=== PATIENT | female | born 1965 | race Caucasian/White ===

== ENCOUNTER 2024-02-04 17:43 | Emergency (ER) | payer OTHER, SELFPAY ==
[2024-02-04 17:44] VITALS: PULSE 89; RESP 18; TEMP 36.9; O2SAT 100; BMI 33.0
--- NOTE | 2024-02-04 18:10 | RAD_ITS ---
INDICATION: pain EXAMINATION/TECHNIQUE: X-RAY - LEFT XR Knee Complete 4 Views or More 4 VIEWS COMPARISON: None FINDINGS: SOFT TISSUES: Suprapatellar joint effusion. No soft tissue swelling or gas. No radiopaque foreign body. BONES/JOINTS: No acute fracture. Normal alignment. Medial compartment and patellofemoral compartment joint space narrowing with tricompartment moderate osteophyte formation. Large 2.5 cm body inferior to the patella.. No sclerotic or destructive changes observed. RAD/Knee 4 or More Views IMPRESSION: Multicompartment osteoarthritis with joint effusion. Electronically Signed: Javi Sadler MD at 18:33 EDT ,
--- NOTE | 2024-02-04 18:16 | EDS_ITS ---
HPI History of Present Illness Chief Complaint: Lower Extremity Injury Informant: patient and family Narrative Narrative: Increasing left knee pain over the last 3 days. Was out picking mushrooms. Denies any falls or injuries. Was told she had [id number] arthritic changes in the knee 12 years ago when she had arthroscopic surgery by Dr. Cortez. She had cortisone injection x 2. She had leftover ibuprofen last dose 2 hours ago. Swelling to the knee. No fevers. Prior similar symptoms: Yes PFSH PFSH Medical History Knee pain Allergy/AdvReac Type Severity Reaction Status Date / Time No Known Allergies Allergy Verified 02/04/24 17:44 Social History Smoking Status: Smoker, status unknown ROS ROS ED Constitutional Constitutional ED: Denies chills, fever(s) or sweats Eyes Eyes: Denies change in vision ENT ENT ED: Denies dysphagia or sore throat Cardiovascular Cardiovascular: Denies chest pain, leg edema, palpitations or racing heartbeat Respiratory/Chest Respiratory/Chest: Denies cough, dyspnea or dyspnea on exertion Gastrointestinal Gastrointestinal: Denies abdominal pain, diarrhea, nausea or vomiting Genitourinary Genitourinary ED: Denies dysuria, hematuria or urinary frequency Musculoskeletal Musculoskeletal: Reports extremity pain and other Details: Left knee pain and swelling ; Denies back pain or neck pain Integumentary Denies rash or wounds Neurologic Neurologic: Denies headache(s), paresthesias or weakness EXAM Physical Exam Const Vital Signs: 02/04/24 17:44 02/04/24 19:18 Temperature 98.4 F 97.2 F L Temperature Source Temporal Pulse Rate 89 78 Respiratory Rate 18 16 Blood Pressure 137/74 H Blood Pressure Mean 95 Pulse Ox 100 99 Oxygen Delivery Method Room Air Positive well nourished and well developed General Appearance ED: well developed and NAD HEENT Reports moist mucous membranes normocephalic and atraumatic Eyes PERRL, EOMs intact bilaterally and conjunctivae normal General Eye ED: Yes normal appearance of both eyes Neck no lymphadenopathy and supple General: Negative for tenderness Chest Wall Chest: Negative for tenderness Resp normal respiratory effort and normal air movement Effort and Inspection: symmetric chest movement; Negative for respiratory distress Cardio regular rate, regular rhythm and no murmurs Peripheral Pulses: pulses 2+ throughout GI normal to inspection, nondistended, normoactive bowel sounds and non-tender Palpation: Negative for guarding or rebound tenderness present Back/Spine no CVA tenderness and no thoracic nor lumbar tenderness Extremity Extremity Narrative: Left lower extremity: Negative logroll. Suprapatellar swelling laterally knee extensor is intact. No redness or warmth. Negative Summer's. Positive patellar grind. No deformities. Neuro vas intact distally. General Extremety ED: Yes edema and tenderness General Extremity: edema Neuro oriented x3 and no sensory deficits noted Sensorium / Orientation: awake and alert Skin no rashes or lesions noted and no wounds MDM MDM MDM Narrative Medical decision making narrative: Interventions / MDM: Differential diagnosis: Diagnosis considered but do not suspect: No clinical septic joint. My EKG interpretation: N/A Imaging independently reviewed and interpreted by myself: Left knee x-ray 4 views: Multi osteoarthritic changes. Knee effusion. Also read by radiology. External documents reviewed: N/A Test considered but not ordered:N/A ED course: Patient declines any additional medication at this time. Exam concerns for patellofemoral chondritis with suprapatellar effusion. No clinical septic joint. X-ray ordered for further evaluation. X-ray degenerative changes noted however no [id number] as she reported. She was shown pictures through PACS on printout. She states she will continue her ibuprofen which she has at home. She has a knee sleeve and crutches. She is given follow-up with orthopedics for further treatment options as an outpatient. All questions were answered. Re-evaluation: stable Disposition discussed with patient/family/significant other: Patient and family Case discussed with consulting clinician: N/A This note was generated with [employer] dictation software. It may contain incorrect words, spelling, and punctuation that were not noted in checking the note before signing. Radiography Diagnostic Testing: Clinical Impression(s) from Imaging Studies Knee X-Ray 02/04/24 18:10 IMPRESSION: Multicompartment osteoarthritis with joint effusion. Electronically Signed: Javi Sadler MD at 18:33 EDT , Discharge Plan Triage Chief Complaint: Lower Extremity Injury ED Provider: Oscar Palencia Dx/Rx/DC Orders Clinical Impression: Effusion of left knee, Osteoarthritis of left knee Instructions: Osteoarthritis Knee, ED Knee Effusion Primary Care Provider: Cayden Yang Referrals: Everardo Arreola DO [Med Staff - Active Staff] - 3-5 Days Activity Restrictions/Additional Instructions: X-ray with osteoarthritic changes. Knee effusion noted. No clinical septic joint. Continue ibuprofen every 8 hours. Continue your knee sleeve and crutches as needed. Follow-up with Dr. Arreola for outpatient evaluation. Disposition Disposition: Home, Self Care Discharge Date/Time: 02/04/24 19:19
[2024-02-04 19:18] VITALS: BP 137/74; PULSE 78; RESP 16; TEMP 36.2; O2SAT 99
== END 2024-02-04 19:19 | disposition home or self-care (01) ==
PROVIDERS: Emergency Provider Emergency Medicine; PCP Family Medicine; Visit Provider Emergency Medicine
DX: M17.12 Unilateral primary osteoarthritis, left knee (principal); M25.462 Effusion, left knee
CPT/HCPCS: 73564; 99282

== ENCOUNTER 2024-02-06 17:21 | Emergency (ER) | payer OTHER, SELFPAY ==
[2024-02-06 17:22] VITALS: BP 128/58; PULSE 90; RESP 16; TEMP 36.5; O2SAT 99
--- NOTE | 2024-02-06 18:20 | RAD_ITS ---
INDICATION: edema EXAMINATION/TECHNIQUE: X-RAY - LEFT XR Knee Complete 4 Views or More COMPARISON: None. FINDINGS: No acute fracture or malalignment. Moderate, medial compartment predominant, tricompartmental joint space narrowing and osteophytosis. Large joint effusion. Diffuse soft tissue swelling of the knee. RAD/Knee 4 or More Views IMPRESSION: No acute fracture or malalignment. Large suprapatellar joint effusion. Moderate, medial compartment predominant, tricompartmental degenerative arthrosis of the knee. Electronically Signed: Todd Harris MD at 19:13 EDT ,
--- NOTE | 2024-02-06 19:03 | ED.VIS.LOWEX ---
HPI History of Present Illness Chief Complaint: Lower Extremity Injury Detail of Chief Complaint: Knee pain and swelling Occured/Mechanism Comment: Patient states she was walking in the [place] this past weekend. Pain started on Saturday. Became worse on Saturday. She is now unable to ambulate. Onset/Context/Timing Onset: Days Context: Sudden Onset Quality of Pain: Dull and Aching Location: Left knee Current Severity: Moderate Maximum Severity: Severe Worsened by: Weightbearing or movement Relieved by: Nothing Associated Symptoms Associated Symptoms: Positive for Loss of Funtion; Negative for Parasthesia or Weakness Narrative Narrative: Patient is a 59-year-old woman. She has history of arthritis left knee. He also has history of effusion of the left knee. She has no history of gout or pseudogout. She is not on a thiazide diuretic. She denies fever, chills night sweats. Patient's pain started on Saturday. Became unbearable and now unable to bear weight. She states she did not do anything out of the ordinary other than go out in the [place] to [place]. There is no history of fall. There is no history of direct or indirect trauma. She denies paresthesia, anesthesia or motor weakness. She states she did have a arthroscopy performed by orthopedic surgeon in [place] many years ago. She was told at that time that she has [id number]. Prior similar symptoms: Yes Recent Illness/Hospitalization: No PFSH [facility] Medical History (Updated 02/06/24 @ 19:[address] Keith Holder MD) Knee pain Home Medications hydrocodone-acetaminophen 5-325mg 5mg-325mg 1 tab PO Q6H PRN PRN Pain 3 days #10 TABLETS 02/06/24 [Rx Last Taken Unknown] Allergy/AdvReac Type Severity Reaction Status Date / Time No Known Allergies Allergy Verified 02/06/24 17:23 Social History Smoking Status: Smoker, status unknown ROS ROS ED Constitutional Constitutional ED: Denies chills, fever(s), subjective, sweats or weight loss Cardiovascular Cardiovascular: Denies chest pain or palpitations Respiratory/Chest Respiratory/Chest: Denies cough, dyspnea or dyspnea on exertion Musculoskeletal Musculoskeletal: Denies arthralgias or myalgias Integumentary Denies rash Neurologic Neurologic: Denies paresthesias or weakness Hematologic/Lymphatic Hematologic/Lymphatic: Denies easy bleeding or easy bruising EXAM Physical Exam Const Vital Signs: 02/06/24 17:22 Temperature 97.7 F L Temperature Source Temporal Pulse Rate 90 Respiratory Rate 16 Blood Pressure 128/58 H Blood Pressure Mean 81 Pulse Ox 99 Oxygen Delivery Method Room Air Positive well nourished and well developed Constitutional Narrative: Patient appears uncomfortable. General Appearance ED: well developed; Negative for NAD HEENT Reports moist mucous membranes normocephalic and atraumatic Eyes PERRL Eyes Narrative: Extract muscles intact. Neck full ROM and supple Resp normal respiratory effort Cardio regular rate and regular rhythm Extremity Negative for normal to inspection or full ROM Extremity Narrative: The left knee is swollen. The patellas not blottable. There is an effusion. There is joint line tenderness. There is no laxity varus valgus stress testing. She is able to extend to about 165 degrees. She is able to flex to approximately 100 degrees. Saundra's test was negative. Unable to perform modified Summer's test. There is no fullness or pulsatile mass in the popliteal fossa. DP and PT pulse are 2+. There is no erythema, warmth noted. General Extremety ED: Negative for cyanosis or edema General Extremity: Negative for cyanosis or edema Neuro oriented x3, CN's II-XII intact bilaterally, moves all extremities and no sensory deficits noted Sensorium / Orientation: alert Motor Exam: strength 5/5 throughout Psych mental status grossly normal Skin no wounds Lesions: no lesions Rashes: no rashes MDM MDM MDM Narrative Medical decision making narrative: Patient's left knee is swollen. Suspect this is due to osteoarthritis with no history of direct or indirect trauma. 4 view x-ray was obtained per nurse protocol. There is an effusion. There is significant osteoarthritic changes noted. There is no other mass or abnormality noted. Plan is opiate analgesia and crutches referral to Dr. Bloom. History & Record Review Additional record(s) reviewed:: Prior outpatient record Discharge Plan Triage Chief Complaint: Lower Extremity Injury ED Provider: Keith Holder Dx/Rx/DC Orders Clinical Impression: Effusion of left knee, Osteoarthritis of left knee, Unable to bear weight on left lower extremity, Hypertension Instructions: ED Osteoarthritis Prescriptions: New hydrocodone-acetaminophen [hydrocodone-acetaminophen] 5-325 mg tablet 1 tab PO Q6H PRN PRN (Reason: Pain) 3 Days Qty: 10 0RF Primary Care Provider: Cayden Yang Referrals: Cayden Yang MD [Primary Care Provider] - Duncan Bloom MD [Med Staff - Active Staff] - 3-5 Days Disposition Disposition: Home, Self Care
[2024-02-06] MEDS: HYDROcodone Bitartrate/Apap 5/325 Tablet PO (19:33)
== END 2024-02-06 19:39 | disposition home or self-care (01) ==
LOC: ED 19:30
PROVIDERS: Emergency Provider Emergency Medicine; PCP Family Medicine; Visit Provider Emergency Medicine
DX: M17.12 Unilateral primary osteoarthritis, left knee (principal); F17.200 Nicotine dependence, unspecified, uncomplicated; M25.462 Effusion, left knee; I10 Essential (primary) hypertension
CPT/HCPCS: 73564; 99283

== ENCOUNTER 2024-02-08 23:37 | Inpatient (IN) | payer OTHER, SELFPAY ==
[2024-02-08 23:40] VITALS: BP 122/53; PULSE 90; RESP 16; TEMP 36.8; O2SAT 97; BMI 33.9
[2024-02-08 23:42] VITALS: BP 122/53; PULSE 90; RESP 16; TEMP 36.8; O2SAT 97
--- NOTE | 2024-02-08 23:56 | EDS_ITS ---
HPI History of Present Illness Chief Complaint: Lower Extremity Injury Informant: patient and family Narrative Narrative: Patient has ED worsening left knee pain and swelling. Patient was seen 4 days of by myself pain and swelling after picking mushrooms. Workup had osteoarthritic changes were put on Motrin. Return to 2 days ago to the ED increasing pain and swelling. She is put on [place]'s given follow-up with orthopedics. Yesterday redness to the medial aspect of the knee pain with any movement of the knee. She has no fevers. No diabetes history. Hypertension on amlodipine. She had a left knee arthroscopy [address] Cortez. Prior similar symptoms: No PFSH PFSH Medical History (Updated 02/09/24 @ 04:[address] Oscar Palencia DO) Knee pain Home Medications hydrocodone-acetaminophen 5-325mg 5mg-325mg 1 tab PO Q6H PRN PRN Pain 3 days #10 TABLETS 02/06/24 [Rx Last Taken Unknown] amlodipine 5 mg tablet 5 mg PO QPM 02/08/24 [History Last Taken Unknown] cyanocobalamin (vitamin B-12) 1,000 mcg tablet 1,000 mcg PO DAILY 02/08/24 [History Last Taken Unknown] ibuprofen 800 mg tablet (IBU) 800 mg PO Q8H PRN pain 02/08/24 [History Last Taken Unknown] Allergy/AdvReac Type Severity Reaction Status Date / Time No Known Allergies Allergy Verified 02/08/24 23:38 Family History (Updated 02/09/24 @ 05:[address] Ayan Dior MD) Other Heart disease Surgical History (Updated 02/09/24 @ 05:[address] Ayan Dior MD) Status post arthroscopy of left knee Status post section Social History Smoking Status: Never smoker ROS ROS ED Constitutional Constitutional ED: Denies chills, fever(s) or sweats Eyes Eyes: Denies change in vision ENT ENT ED: Denies dysphagia or sore throat Cardiovascular Cardiovascular: Denies chest pain, leg edema, palpitations or racing heartbeat Respiratory/Chest Respiratory/Chest: Denies cough, dyspnea or dyspnea on exertion Gastrointestinal Gastrointestinal: Denies abdominal pain, diarrhea, nausea or vomiting Genitourinary Genitourinary ED: Denies dysuria, hematuria or urinary frequency Musculoskeletal Musculoskeletal: Reports extremity pain and other Details: Left knee pain and swelling with redness ; Denies back pain or neck pain Integumentary Denies rash or wounds Neurologic Neurologic: Denies headache(s), paresthesias or weakness EXAM Physical Exam Const Vital Signs: 02/08/24 23:40 02/08/24 23:42 02/09/24 00:42 Temperature 98.2 F 98.2 F 98.5 F Temperature Source Temporal Temporal Oral Pulse Rate 90 90 86 Respiratory Rate 16 16 18 Blood Pressure 122/53 H 122/53 H 110/52 L Blood Pressure Mean 76 76 71 Pulse Ox 97 97 92 Oxygen Delivery Method Room Air Oxygen Flow Rate (L/min) 02/09/24 01:00 02/09/24 03:00 02/09/24 05:00 Temperature Temperature Source Pulse Rate 96 87 93 Respiratory Rate 18 18 16 Blood Pressure 129/72 H 122/58 H 131/64 H Blood Pressure Mean 89 79 86 Pulse Ox 98 99 99 Oxygen Delivery Method Nasal Cannula Oxygen Flow Rate (L/min) 2 Positive well nourished and well developed General Appearance ED: well developed and NAD HEENT Reports moist mucous membranes normocephalic and atraumatic Eyes PERRL, EOMs intact bilaterally and conjunctivae normal General Eye ED: Yes normal appearance of both eyes Neck no lymphadenopathy and supple General: Negative for tenderness Chest Wall Chest: Negative for tenderness Resp normal respiratory effort and normal air movement Effort and Inspection: symmetric chest movement; Negative for respiratory distress Cardio regular rate, regular rhythm and no murmurs Peripheral Pulses: pulses 2+ throughout GI normal to inspection, nondistended, normoactive bowel sounds and non-tender Palpation: Negative for guarding or rebound tenderness present Back/Spine no CVA tenderness and no thoracic nor lumbar tenderness Extremity Extremity Narrative: Left lower extremity: Has more diffuse left knee swelling there is erythema the medial aspect of the knee there is pain with range of motion of the knee. General Extremety ED: Yes edema and tenderness General Extremity: edema Neuro oriented x3 and no sensory deficits noted Sensorium / Orientation: awake and alert Skin no rashes or lesions noted and no wounds MDM MDM MDM Narrative Medical decision making narrative: Interventions / MDM: Differential diagnosis: Septic left knee, left knee pain Diagnosis considered but do not suspect: N/A My EKG interpretation: Normal sinus rhythm no acute findings. Imaging independently reviewed and interpreted by myself: External documents reviewed: Recent ED visits and x-rays of the left knee. Test considered but not ordered:N/A ED course: Worsening swelling now erythema of the knee pain with range of motion. Concern for septic knee. Sepsis labs were ordered along with inflammatory markers. Preparation for knee aspiration. Procedure note: Written consent. Normal sterile, aseptic technique. Risk and benefit discussed. Time out 0100. Sterile gloves, skin prep with Betadine, 18- gauge needle approach laterally with knee in slight flexed position. Yellow drainage removed with a 10 cc syringe. A total of 80 cc were removed. Last syringe had brown cloudy fluid from a 20 cc syringe. Needle was removed, no active bleeding. Bandage was placed. Patient tolerated procedure well. 0330: White count 10.8. CRP 300. ESR 88. Require additional pain medicines with morphine and Dilaudid. Awaiting results of synovial fluid at this time. 0428: Patient's knee pain currently returning. Will redose with medications. Awaiting results of arthrocentesis. 0450: Results of cell count, white blood cell count 3,580,000. Discussed these results with electronics warfare technician, she states she had the count all the white cells which was majority on the slides. Culture is pending. Crystals are negative. I spoke with on-call orthopedist Dr. Massimo Coats, discussed patient's history and findings, IV antibiotics are ordered. She will be kept NPO. Requests admission to medicine with ID consult. I spoke with hospitalist Dr. Dior for admission. Re-evaluation: stable Disposition discussed with patient/family/significant other: Patient Case discussed with consulting clinician: Orthopedist, Dr. Massimo Coats, hospitalist This note was generated with [employer] dictation software. It may contain incorrect words, spelling, and punctuation that were not noted in checking the note before signing. Lab Data Attestation: I reviewed the patient's lab results. Labs: Laboratory Results - last 24 hr 02/08/24 02/09/24 00:01 01:06 WBC 10.8 RBC 4.51 Hgb 11.8 L Hct 36.1 L MCV 80.0 L MCH 26.2 L MCHC 32.7 RDW Std Deviation 43.1 RDW Coeff of Kj 14.6 Plt Count 318 MPV 10.8 Immature Gran % (Auto) 0.800 Neut % (Auto) 82.9 H Lymph % (Auto) 5.8 L [place] % (Auto) 9.9 Eos % (Auto) 0.3 Baso % (Auto) 0.3 Absolute Neuts (auto) 9.0 H Absolute Lymphs (auto) 0.63 L Nucleated RBC % 0 ESR 88 H Sodium 134 L Potassium 3.2 L Chloride 101 Carbon Dioxide 26.0 Anion Gap 7 BUN 16 Creatinine 0.64 Estim Creat Clear Calc 112.84 Est GFR (MDRD) Af Amer 124 Est GFR (MDRD) Non-Af 102 BUN/Creatinine Ratio 25.1 H Glucose 133 H Calcium 8.8 C-React Prot Ext Range 300.00 H Fluid Source OTHER Fluid Color YELLOW Fluid Appearance TURBID Fluid WBC 3580.000 Fluid RBC 3.300 Fluid Tot Cell Count 3593.000 H Fluid Crystals NO CRYSTALS SEEN Fluid Crystal Source SYNOVIAL Fl Pathologist Comment May follow Fluid Comment 2 Not Reportable Discharge Plan Dx/Rx/DC Orders Clinical Impression: Effusion of left knee, Knee pain, left, Septic arthritis of knee, left Disposition Disposition: Acute Care [facility] [place] Discharge Date/Time: 02/09/24 06:15
[2024-02-09] VITALS (19 sets, daily range): BP systolic 99–166; BP diastolic 47–96; PULSE 86–117; RESP 14–18; TEMP 35.7–37.7; O2SAT 92–99; BMI 32.4
[2024-02-09] MEDS: Ondansetron 4 MG/2 ML Vial IV ×2 (00:01→08:29)
[2024-02-09] MEDS: Morphine 4 MG/ML Syringe IV ×2 (00:01→02:00)
[2024-02-09 00:50] LABS: Erythrocyte Sedimentation Rate 88 mm/hr (0-30)
[2024-02-09 01:04] LABS: Absolute Lymphocyte Count 0.63 X10^3/uL (0.83-4.51); Basophil# 0.03 X10^3/uL; Basophil% 0.3 % (0-1); Eosinophil# 0.03 X10^3/uL; Eosinophils% 0.3 % (0-5); Hematocrit 36.1 % (37-47); Hemoglobin 11.8 g/dL (12.0-15.0); Lymphocyte # 0.63 X10^3/ul (0.83-4.51); Lymphocyte % 5.8 % (19-41); Mean Corp Hgb Conc 32.7 g/dL (32-36); Mean Corpuscular Hgb 26.2 pg (27.0-32.0); Mean Platelet Vol. 10.8 fl (6.2-12.0); Monocyte# 1.07 X10^3/uL; Monocyte% 9.9 % (0-10); NRBC Flagged by Analyzer 0 % (0-5); Neutrophil # 8.98 X10^3/uL (2.7-7.7); Neutrophil % 82.9 % (47-70); Platelet Count 318 K/mm3 (150-450); RBC Distribution Width CV 14.6 % (11.6-14.6); RBC Distribution Width SD 43.1 fl (35.1-43.9); Red Blood Count 4.51 M/mm3 (4.2-5.4); White Blood Count 10.8 K/mm3 (4.4-11.0)
[2024-02-09 01:26] LABS: Anion Gap 7 (5-15); BUN 16 mg/dL (7-18); BUN/Creat Ratio 25.1 RATIO (10-20); Calcium,Total 8.8 mg/dL (8.5-10.1); Chloride 101 mmol/L (98-107); Creatinine, Serum 0.64 mg/dL (0.55-1.02); EST Glomerular Filtration Rate 102 mL/min (>60); Est Glom Filt Rate - Afr Amer 124 mL/min (>60); Estimated Creatinine Clearance 112.84 ml/min; Glucose 133 mg/dL (74-106); Potassium 3.2 mmol/L (3.5-5.1); Sodium Level 134 mmol/L (136-145)
[2024-02-09] MEDS: HYDROmorphone 0.5 MG/0.5 ML SYRINGE IV ×3 (02:42→05:54)
[2024-02-09 03:52] LABS: CRYSTALS, BODY FLUID NO CRYSTALS SEEN; Source- Body Fluid SYNOVIAL
--- NOTE | 2024-02-09 05:15 | EKG12_ITS ---
Test Reason : DYSRHYTHMIA Blood Pressure : / mmHG Vent. Rate : 091 BPM Atrial Rate : 091 BPM P-R Int : 198 ms QRS Dur : 080 ms QT Int : 316 ms P-R-T Axes : 036 000 011 degrees QTc Int : 388 ms Normal sinus rhythm Normal ECG Confirmed by Andrea Acuna ([id number]), editor managing director PORFIRIO BEAN ([id number]) on 02/10/2024 9:57:21 AM Referred By: Confirmed By:Andrea Acuna
--- NOTE | 2024-02-09 05:24 | PCM.HP.STD ---
HPI - General General Date of Admission: 02/09/24 HPI Narrative SUZANNE CHRISTIE, is a 59 F who presents to the hospital with increasing left knee pain and medial redness that is expanding quickly. She has been having issues with her left knee for several years and she had an arthroscopy done 12 years ago. [place] when walking outside put strain on her knee. She did present to the ER 4 days ago with knee pain and then again 2 days after that with the same knee pain that was getting worse. On today's admission she was found to have a CRP of 300 and an ESR of 88. No fevers and no leukocytosis. Her daughter is a nurse and told her to put a marking around the initial redness on the medial aspect of her left knee and then to remark if it expands, she said that she had to remark after about an hour when it could spread down her knee by about an inch and a half. When she presented to the ER a fluid sample was taken by the ED physician and it was found to have 3.5 million white blood cells and no crystals. She was given a dose of Zosyn and vancomycin and the case was discussed with orthopedic surgery who requested medicine admission due to her hypertension that she takes Norvasc for. [facility], [facility] Medical History (Updated 02/09/24 @ 04:[address] Osacr Palencia DO) Knee pain Home Medications hydrocodone-acetaminophen 5-325mg 5mg-325mg 1 tab PO Q6H PRN PRN Pain 3 days #10 TABLETS 02/06/24 [Rx Last Taken Unknown] amlodipine 5 mg tablet 5 mg PO QPM 02/08/24 [History Last Taken Unknown] cyanocobalamin (vitamin B-12) 1,000 mcg tablet 1,000 mcg PO DAILY 02/08/24 [History Last Taken Unknown] ibuprofen 800 mg tablet (IBU) 800 mg PO Q8H PRN pain 02/08/24 [History Last Taken Unknown] Allergy/AdvReac Type Severity Reaction Status Date / Time No Known Allergies Allergy Verified 02/08/24 23:38 Family History (Updated 02/09/24 @ 05:[address] Ayan Dior MD) Other Heart disease Surgical History (Updated 02/09/24 @ 05:[address] Ayan Dior MD) Status post arthroscopy of left knee Status post section Social History Smoking Status: Never smoker ROS Constitutional Constitutional: Denies chills, fatigue, fever(s) or malaise Eyes Eyes: Denies blurry vision ENT HEENT: Denies headache(s) or nasal discharge Cardiovascular Cardiovascular: Denies chest pain, dyspnea on exertion or syncope Respiratory/Chest Respiratory/Chest: Denies cough, shortness of breath at rest or shortness of breath with exertion Gastrointestinal Gastrointestinal: Denies constipation, diarrhea, nausea or vomiting Genitourinary Genitourinary: Denies dysuria Musculoskeletal Musculoskeletal: Reports joint pain and joint swelling Neurologic Neurologic: Denies focal weakness, numbness or tremor(s) Psychiatric Psychiatric: Denies anxiety or depression Vital Signs Vital Signs Vital Signs: 02/08/24 23:40 02/08/24 23:42 02/09/24 00:42 Temperature 98.2 F 98.2 F 98.5 F Temperature Source Temporal Temporal Oral Pulse Rate 90 90 86 Respiratory Rate 16 16 18 Blood Pressure 122/53 H 122/53 H 110/52 L Blood Pressure Mean 76 76 71 Pulse Ox 97 97 92 Oxygen Delivery Method Room Air Oxygen Flow Rate (L/min) 02/09/24 01:00 02/09/24 03:00 02/09/24 05:00 Temperature Temperature Source Pulse Rate 96 87 93 Respiratory Rate 18 18 16 Blood Pressure 129/72 H 122/58 H 131/64 H Blood Pressure Mean 89 79 86 Pulse Ox 98 99 99 Oxygen Delivery Method Nasal Cannula Oxygen Flow Rate (L/min) 2 Weight Weight: 210 lb 1.608 oz Body Mass Index (BMI) 33.9 Physical Exam Narrative General: Alert, Oriented x3, Cooperative, No apparent distress HEENT: Atraumatic, PERRLA, EOMI, Normocephalic Oral: Moist Mucosa Neck: Supple, No JVD Lungs: Diminished, Normal air movement, No rhonchi, No wheeze, No rales Cardiovascular: Regular rate, Regular Rhythm, Normal S1, Normal S2, No murmurs Abdomen: Soft, Non Tender, Non-Distended, No Hepato-splenomegaly Extremities: No edema, Capillary Refill Less than 3 Seconds Skin: Medial redness of the left knee extending down into the calf Musculoskeletal: Tenderness to the left knee with swelling around the left knee Neurological: No focal neurological deficits, Motor Exam 5/5 strength throughout, Sensory exam intact to light touch and pain Psych/Mental Status: Normal Affect, Appropriate Results Lab / Micro Data 02/09/24 05:30 02/09/24 05:30 Labs: Laboratory Results - last 24 hr 02/08/24 00:01: WBC 10.8, RBC 4.51, Hgb 11.8 L, Hct 36.1 L, MCV 80.0 L, MCH 26.2 L, MCHC 32.7, RDW Std Deviation 43.1, RDW Coeff of Kj 14.6, Plt Count 318, MPV 10.8, Immature Gran % (Auto) 0.800, Neut % (Auto) 82.9 H, Lymph % (Auto) 5.8 L, [place] % (Auto) 9.9, Eos % (Auto) 0.3, Baso % (Auto) 0.3, Absolute Neuts (auto) 9.0 H, Absolute Lymphs (auto) 0.63 L, Nucleated RBC % 0, ESR 88 H, Sodium 134 L, Potassium 3.2 L, Chloride 101, Carbon Dioxide 26.0, Anion Gap 7, BUN 16, Creatinine 0.64, Estim Creat Clear Calc 112.84, Est GFR (MDRD) Af Amer 124, Est GFR (MDRD) Non-Af 102, BUN/Creatinine Ratio 25.1 H, Glucose 133 H, Calcium 8.8, C-React Prot Ext Range 300.00 H 02/09/24 01:06: Fluid Source OTHER, Fluid Color YELLOW, Fluid Appearance TURBID, Fluid WBC 3580.000, Fluid RBC 3.300, Fluid Tot Cell Count 3593.000 H, Fluid Crystals NO CRYSTALS SEEN, Fluid Crystal Source SYNOVIAL, Fl Pathologist Comment May follow, Fluid Comment 2 Not Reportable Assessment & Plan Assessment/Plan (1) Septic arthritis of knee, left: PLAN: Plan 1. Septic left knee joint ? Knee fluid with 3.5 million white blood cell count ? Continue with Vanco and Zosyn ? Will consult orthopedic surgery, given that her only medical problem is hypertension she is low risk ? Will consult infectious disease at the request of orthopedic surgery for evaluation of antibiotics ? N.p.o. ? Pain management 2. Essential hypertension ? She takes Norvasc at night ? Can continue ? Will monitor and adjust as necessary DVT: SCDs 75 minutes was spent on direct patient care, including documentation as well as chart review and collaboration with colleagues Charges/Coding Visit Charges Inpatient E&M: 12620 Init Hosp L3
--- NOTE | 2024-02-09 05:28 | RAD_ITS ---
INDICATION: preop EXAMINATION/TECHNIQUE: X-RAY - XR Chest 1 View COMPARISON: None. FINDINGS: LINES/DEVICES: None. LUNGS: No pulmonary edema or focal airspace consolidation. No sizable pleural effusion. No pneumothorax detected. MEDIASTINUM AND CARDIOVASCULAR STRUCTURES: Heart size within normal limits. Mediastinal contours unremarkable. BONES AND SOFT TISSUES: No acute findings. RAD/Chest 1 View IMPRESSION: No radiographic evidence of acute cardiopulmonary disease. Electronically Signed: Fredo Johnson MD at 6:30 EDT ,
[2024-02-09] MEDS: Piperacil/Tazobactam 4.5 GM in 0.9% Normal Saline (100mL MB+) 100 ML IV (05:37)
[2024-02-09] MEDS: 0.9% Normal Saline (1000mL) 1,000 ML 100 ML IV (05:40)
[2024-02-09 05:47] LABS: Absolute Lymphocyte Count 0.75 X10^3/uL (0.83-4.51); Absolute Neutrophil Count 9.2 X10^3/uL (2.0-7.7); Basophil# 0.03 X10^3/uL; Basophil% 0.3 % (0-1); Eosinophil# 0.03 X10^3/uL; Eosinophils% 0.3 % (0-5); Hematocrit 35.7 % (37-47); Hemoglobin 11.5 g/dL (12.0-15.0); Lymphocyte # 0.75 X10^3/ul (0.83-4.51); Lymphocyte % 6.8 % (19-41); Mean Corp Hgb Conc 32.2 g/dL (32-36); Mean Corpuscular Hgb 25.9 pg (27.0-32.0); Mean Corpuscular Volume 80.4 fL (81-99); Mean Platelet Vol. 10.1 fl (6.2-12.0); Monocyte# 0.98 X10^3/uL; Monocyte% 8.9 % (0-10); NRBC Flagged by Analyzer 0 % (0-5); Neutrophil # 9.22 X10^3/uL (2.7-7.7); Neutrophil % 83.2 % (47-70); Platelet Count 304 K/mm3 (150-450); RBC Distribution Width CV 14.6 % (11.6-14.6); Red Blood Count 4.44 M/mm3 (4.2-5.4); White Blood Count 11.1 K/mm3 (4.4-11.0)
[2024-02-09 06:02] LABS: Anion Gap 7 (5-15); BUN 16 mg/dL (7-18); BUN/Creat Ratio 26.6 RATIO (10-20); Calcium,Total 8.8 mg/dL (8.5-10.1); Chloride 101 mmol/L (98-107); EST Glomerular Filtration Rate 109 mL/min (>60); Est Glom Filt Rate - Afr Amer 132 mL/min (>60); Estimated Creatinine Clearance 120.36 ml/min; Glucose 122 mg/dL (74-106); Potassium 3.2 mmol/L (3.5-5.1); Sodium Level 136 mmol/L (136-145)
[2024-02-09] MEDS: Vancomycin HCl 2,000 MG in 0.9% Normal Saline (500mL Bag) 500 ML 250 MG IV (06:12)
--- NOTE | 2024-02-09 06:59 | PCM.RX.CS ---
Consult Antibiotic Management Pharmacy has been consulted to manage selected antibiotic: Vancomycin Type of Intervention Type of Consult: Follow-up Labs Labs: Sodium 136 mmol/L (136-145) 02/09/24 05:30 Potassium 3.2 mmol/L (3.5-5.1) L 02/09/24 05:30 Chloride 101 mmol/L (98-107) 02/09/24 05:30 Carbon Dioxide 28.0 mmol/L (21.0-32.0) 02/09/24 05:30 Anion Gap 7 (5-15) 02/09/24 05:30 BUN 16 mg/dL (7-18) 02/09/24 05:30 Creatinine 0.60 mg/dL (0.55-1.02) 02/09/24 05:30 Est GFR (MDRD) Af Amer 132 mL/min (>60) 02/09/24 05:30 Est GFR (MDRD) Non-Af 109 mL/min (>60) 02/09/24 05:30 BUN/Creatinine Ratio 26.6 RATIO (10-20) H 02/09/24 05:30 Glucose 122 mg/dL (74-106) H 02/09/24 05:30 Dosing Weight Weight used for dosin.9 kg Estimated Creatinine Clearance Estimated Creatinine Clearance: 120 Goal Trough Goal Trough: 15-20 mcg/mL Pharmacy Plan for Drug Dosing Pharmacy Plan for Drug Dosing: Pharmacy Service will continue to monitor and adjust dosing as required. Date/Time Labs Ordered Labs to be done on [date and time ordered]: 02/09 @ 0600
--- NOTE | 2024-02-09 07:01 | PCM.RX.CS ---
Consult Antibiotic Management Pharmacy has been consulted to manage selected antibiotic: Vancomycin Type of Intervention Type of Consult: New start Labs Labs: Sodium 136 mmol/L (136-145) 02/09/24 05:30 Potassium 3.2 mmol/L (3.5-5.1) L 02/09/24 05:30 Chloride 101 mmol/L (98-107) 02/09/24 05:30 Carbon Dioxide 28.0 mmol/L (21.0-32.0) 02/09/24 05:30 Anion Gap 7 (5-15) 02/09/24 05:30 BUN 16 mg/dL (7-18) 02/09/24 05:30 Creatinine 0.60 mg/dL (0.55-1.02) 02/09/24 05:30 Est GFR (MDRD) Af Amer 132 mL/min (>60) 02/09/24 05:30 Est GFR (MDRD) Non-Af 109 mL/min (>60) 02/09/24 05:30 BUN/Creatinine Ratio 26.6 RATIO (10-20) H 02/09/24 05:30 Glucose 122 mg/dL (74-106) H 02/09/24 05:30 Dosing Weight Weight used for dosin.9 kg Estimated Creatinine Clearance Estimated Creatinine Clearance: 120 Goal Trough Goal Trough: 15-20 mcg/mL Pharmacy Plan for Drug Dosing Pharmacy Plan for Drug Dosing: Pharmacy Service will continue to monitor and adjust dosing as required. Follow-Up Labs Follow-Up Labs: Trough: Vancomycin Date/Time Labs Ordered Labs to be done on [date and time ordered]: 02/09 @ 0600
[2024-02-09] MEDS: 0.9% Saline Lock 10 ML Syringe IV ×3 (07:03→22:38)
[2024-02-09] MEDS: HYDROmorphone 1 MG/ML Syringe IV ×5 (07:03→17:16)
--- NOTE | 2024-02-09 07:07 | PCM.PN.HOSP ---
Reason for Visit Reason for Visit: Diagnoses Pyogenic arthritis, unspecified (02/09/24) Subjective Subjective Patient with ongoing significant pain to the left knee since admission, worse with any movement attempts. She notes she has had minimal sleep because of this. She rates her pain currently 8 out of 10 in severity but notes with any movement the pain is much more sharp especially also with palpation of the region. She again confirms no recent injury or trauma. She initially had been seen in the ED twice for significant pain felt arthritic at that time and then eventually developed redness around the left knee prompting return and eventual diagnosis of septic joint. Discussed plan of care which included continued IV antibiotic therapy in OR this a.m. with orthopedic surgery. Noted intention to have infectious disease also follow-up. Patient denies fevers, chills, nausea, emesis, abdominal pain, chest pain or dyspnea. Objective Data Objective Data Vital Signs: Vital Signs Temp Pulse Resp BP Pulse Ox O2 Del Method O2 Flow Rate 98.4 F 93 18 131/62 H 93 Room Air 2 02/09/24 06:54 02/09/24 06:54 02/09/24 06:54 02/09/24 06:54 02/09/24 06:54 02/09/24 06:54 02/09/24 05:00 Oxygen Flow Rate (L/min) 2 Oxygen Delivery Method Room Air Weight: 207 lb 0.225 oz Body Mass Index (BMI) 32.4 Intake & Output: Intake and Output for Last 24 Hours 02/07/24 02/08/24 02/09/24 23:59 23:59 23:59 Intake Total 100 / 100 Balance 100 / 100 Lab / Micro Data 02/09/24 05:30 02/09/24 05:30 Labs: Laboratory Results - last 24 hr 02/08/24 00:01: WBC 10.8, RBC 4.51, Hgb 11.8 L, Hct 36.1 L, MCV 80.0 L, MCH 26.2 L, MCHC 32.7, RDW Std Deviation 43.1, RDW Coeff of Kj 14.6, Plt Count 318, MPV 10.8, Immature Gran % (Auto) 0.800, Neut % (Auto) 82.9 H, Lymph % (Auto) 5.8 L, [place] % (Auto) 9.9, Eos % (Auto) 0.3, Baso % (Auto) 0.3, Absolute Neuts (auto) 9.0 H, Absolute Lymphs (auto) 0.63 L, Nucleated RBC % 0, ESR 88 H, Sodium 134 L, Potassium 3.2 L, Chloride 101, Carbon Dioxide 26.0, Anion Gap 7, BUN 16, Creatinine 0.64, Estim Creat Clear Calc 112.84, Est GFR (MDRD) Af Amer 124, Est GFR (MDRD) Non-Af 102, BUN/Creatinine Ratio 25.1 H, Glucose 133 H, Calcium 8.8, C-React Prot Ext Range 300.00 H 02/09/24 01:06: Fluid Source OTHER, Fluid Color YELLOW, Fluid Appearance TURBID, Fluid WBC 3580.000, Fluid RBC 3.300, Fluid Tot Cell Count 3593.000 H, Fluid Crystals NO CRYSTALS SEEN, Fluid Crystal Source SYNOVIAL, Fl Pathologist Comment May follow, Fluid Comment 2 Not Reportable 02/09/24 05:30: WBC 11.1 H, RBC 4.44, Hgb 11.5 L, Hct 35.7 L, MCV 80.4 L, MCH 25.9 L, MCHC 32.2, RDW Std Deviation 43.0, RDW Coeff of Kj 14.6, Plt Count 304, MPV 10.1, Immature Gran % (Auto) 0.500, Neut % (Auto) 83.2 H, Lymph % (Auto) 6.8 L, [place] % (Auto) 8.9, Eos % (Auto) 0.3, Baso % (Auto) 0.3, Absolute Neuts (auto) 9.2 H, Absolute Lymphs (auto) 0.75 L, Nucleated RBC % 0, Sodium 136, Potassium 3.2 L, Chloride 101, Carbon Dioxide 28.0, Anion Gap 7, BUN 16, Creatinine 0.60, Estim Creat Clear Calc 120.36, Est GFR (MDRD) Af Amer 132, Est GFR (MDRD) Non-Af 109, BUN/Creatinine Ratio 26.6 H, Glucose 122 H, Calcium 8.8 Radiography Diagnostic Testing: Radiology Impression Chest X-Ray 02/09/24 05:28 IMPRESSION: No radiographic evidence of acute cardiopulmonary disease. Electronically Signed: Fredo Johnson MD at 6:30 EDT , Physical Exam Narrative Physical Examination: General: Awake, alert, oriented x 3 and cooperative, laying in the MS bed, fatigued, uncomfortable appearing especially when she moves. Skin: Normal color, normal turgor, no icterus, no cyanosis except for still a small region around the left medial knee of erythema but it seems to have abated, warmth to the knee notable even to the lower extremity distal to the knee noted warmth. HEENT: AT/NC, EOMI, PERRLA, mildly dry MM. Lungs: CTA bilaterally, moderate effort, mild decrease BL bases, no rales, ronchi or wheezing. Heart: Regular rate and rhythm; no gallop, rub audible. Abdomen: Soft, obese, NTTP, ND, mildly hyperactive Extremities: No cyanosis, no clubbing, see skin, notable left knee swelling, effusion. Neurological: Patient awake, alert, oriented as noted, cognitive function intact; pupils equally reactive to light and accommodation, cranial nerves grossly normal, moving all 4 extremities except extremely limited movement left knee given acute presentation as noted, strength accordingly severely globally decreased. Psychiatric: Affect appears fatigued, uncomfortable,, no acute evidence of depressive or anxiety feelings. Assessment & Plan Assessment/Plan (1) Septic arthritis of knee, left: PLAN: Plan The patient is a 59 y/o F w/ PMHs: Obesity, HTN who presents to the [facility] on 02/09/24 secondary to ongoing severe L knee pain, recently seen in the ED twice with concern for OA pain with planned orthopedic surgery evaluation outpatient; however, worsened and knee started to swell with redness prompting ED return. #1. Acute left knee septic joint with significant effusion: Significant fluid aspiration with evidence of infection, admitted to medical surgical floor, maintained on IV vancomycin and IV Zosyn, orthopedic surgery consulted and plan for OR 02/09/2020 4 AM, will continue pain regimen with adjustments with both IV and oral with breakthrough regimen as needed given significant pain at this time, will need PT and OT assessments following. #2. Microcytic anemia, appears likely new but no comparison labs noted: Admission hemoglobin 11.8, MCV 80, repeat 02/09/2024 hemoglobin 11.5, MCV 80.4, will continue to monitor and trend CBC. Iron panel, ferritin requested. #3. Hypokalemia: Admission K+ 3.2, magnesium level requested and noted to be 2.2, supplementation given, repeat level in AM. #4. Hypertension: Continue home regimen including amlodipine, PRN hydralazine. #5. Obesity: Weight loss and lifestyle changes encouraged. #6. DVT prophylaxis: SCDs given planned OR. Charges/Coding Procedures Hospitalists Procedures: Other Procedure - See Report ([id number]: No billing code as patient admitted same day, unable to bill.)
[2024-02-09 08:08] LABS: AUTO B FLUID DILUENT BKGD CT WBC <0.1 RBC <0.01 (W<.1,R<.01); Color / Synovial Fluid Yellow (Pale Yellow)
[2024-02-09 08:09] LABS: Appearance /Synovial Fluid Cloudy (CLEAR)
[2024-02-09 08:27] LABS: Synovial Fld Mononuclear WBC % 10.9 %; Synovial Fld Polynuclear WBC % 89.1 %
[2024-02-09 08:29] LABS: Lymph 6 %; Monocyte /Synovial Fluid 4 %; Neutrophil 90 % (0-25)
[2024-02-09 08:34] LABS: Magnesium 2.2 mg/dL (1.6-2.6)
[2024-02-09 08:56] LABS: Pathologist Review Will follow; RBC /Synovial Fluid 23 /mm3 (0)
--- NOTE | 2024-02-09 09:29 | CON.PCM.OR_ITS ---
HPI Consult Data Date of Consult: 02/09/24 HPI Narrative HPI Narrative: SUZANNE CHRISTIE, is a 59 F who presents with severe left knee pain. Patient states she was mushroom hunting 8 days ago on Saturday. She does not remember any specific injury to the knee. She does have a history of knee problems. She had left knee arthroscopy [address] Cortez in [place]. She has had posttraumatic arthritis. On Saturday she developed left knee pain and swelling. She went to the emergency room. On Saturday she returned to the emergency room with left knee pain. She was again discharged. She was taken back to the emergency room Saturday evening February 08, 2024 for knee pain. Knee was aspirated. I was notified of the patient at approximately 4 AM on 02/09/2024. I was told she had elevated sed rate, CRP, white cell count and her synovial fluid. Admission was recommended for IV antibiotics and arthroscopic irrigation and debridement for a probable septic knee. Patient states her knee pain was 10 out of 10 coming to the emergency room. Pain has at best has been 4 out of 10 after aspiration, IV antibiotics, Dilaudid. She denies any signs of infection such as dental infection, UTI or any skin sores. Denies history of DVT or PE. [facility] Medical History (Updated 02/09/24 @ 04:[address] Oscar Palencia DO) Knee pain Home Medications hydrocodone-acetaminophen 5-325mg 5mg-325mg 1 tab PO Q6H PRN PRN Pain 3 days #10 TABLETS 02/06/24 [Rx Last Taken Unknown] amlodipine 5 mg tablet 5 mg PO QPM 02/08/24 [History Last Taken Unknown] cyanocobalamin (vitamin B-12) 1,000 mcg tablet 1,000 mcg PO DAILY 02/08/24 [History Last Taken Unknown] ibuprofen 800 mg tablet (IBU) 800 mg PO Q8H PRN pain 02/08/24 [History Last Taken Unknown] Allergy/AdvReac Type Severity Reaction Status Date / Time No Known Allergies Allergy Verified 02/08/24 23:38 Family History (Updated 02/09/24 @ 05:[address] Ayan Dior MD) Other Heart disease Surgical History (Updated 02/09/24 @ 05:[address] Ayan Dior MD) Status post arthroscopy of left knee Status post section Social History Smoking Status: Never smoker ROS ROS Narrative Patient denies any recent changes with eyes ears nose or throat heart or lungs bowel or bladder function. She does have severe left knee pain from her infection Vital Signs Vital Signs Vital Signs: 02/08/24 23:40 02/08/24 23:42 02/09/24 00:42 Temperature 98.2 F 98.2 F 98.5 F Temperature Source Temporal Temporal Oral Pulse Rate 90 90 86 Respiratory Rate 16 16 18 Blood Pressure 122/53 H 122/53 H 110/52 L Blood Pressure Mean 76 76 71 Blood Pressure Source Blood Pressure Position Blood Pressure Location Pulse Ox 97 97 92 Oxygen Delivery Method Room Air Oxygen Flow Rate (L/min) 02/09/24 01:00 02/09/24 03:00 02/09/24 05:00 Temperature Temperature Source Pulse Rate 96 87 93 Respiratory Rate 18 18 16 Blood Pressure 129/72 H 122/58 H 131/64 H Blood Pressure Mean 89 79 86 Blood Pressure Source Blood Pressure Position Blood Pressure Location Pulse Ox 98 99 99 Oxygen Delivery Method Nasal Cannula Oxygen Flow Rate (L/min) 2 02/09/24 05:58 02/09/24 06:54 Temperature 98.9 F 98.4 F Temperature Source Temporal Pulse Rate 90 93 Respiratory Rate 16 18 Blood Pressure 125/51 H 131/62 H Blood Pressure Mean 75 85 Blood Pressure Source Monitor Blood Pressure Position Semi-Fowlers Blood Pressure Location Right Arm Pulse Ox 97 93 Oxygen Delivery Method Room Air Oxygen Flow Rate (L/min) Weight Weight: 93.9 kg Body Mass Index (BMI) 32.4 Physical Exam Narrative Patient is lying in bed. Family present. She has large left knee effusion. She has warmth and redness about the left knee. She is holding the knee flexed about 30 degrees. She has pain with moving it. No calf pain or swelling. Negative Homans' sign. No hip pain with motion. Negative straight leg raise. Legs are neurovascular intact. Skin is intact at the left knee. X-rays of the left knee showed severe arthritis with sclerosis, osteophyte formation, patellofemoral arthritis. Bone spurring medially and laterally. There appears to be a rounded calcific loose body at the anterior knee. Reports reviewed Lab / Micro Data 02/09/24 05:30 02/09/24 05:30 Labs: Laboratory Results - last 24 hr 02/08/24 00:01: WBC 10.8, RBC 4.51, Hgb 11.8 L, Hct 36.1 L, MCV 80.0 L, MCH 26.2 L, MCHC 32.7, RDW Std Deviation 43.1, RDW Coeff of Kj 14.6, Plt Count 318, MPV 10.8, Immature Gran % (Auto) 0.800, Neut % (Auto) 82.9 H, Lymph % (Auto) 5.8 L, [place] % (Auto) 9.9, Eos % (Auto) 0.3, Baso % (Auto) 0.3, Absolute Neuts (auto) 9.0 H, Absolute Lymphs (auto) 0.63 L, Nucleated RBC % 0, ESR 88 H, Sodium 134 L, Potassium 3.2 L, Chloride 101, Carbon Dioxide 26.0, Anion Gap 7, BUN 16, Creatinine 0.64, Estim Creat Clear Calc 112.84, Est GFR (MDRD) Af Amer 124, Est GFR (MDRD) Non-Af 102, BUN/Creatinine Ratio 25.1 H, Glucose 133 H, Calcium 8.8, C-React Prot Ext Range 300.00 H 02/09/24 01:06: Fluid Source Cancelled, Fluid Color Cancelled, Fluid Appearance Cancelled, Fluid WBC Cancelled, Fluid RBC Cancelled, Fluid Tot Cell Count Cancelled, Fld Polynuclear WBCs # Cancelled, Fld Polynuclear WBCs % Cancelled, Fluid Mononuclear WBCs Cancelled, Fld Mononuclear WBCs % Cancelled, Fluid Neutrophils Cancelled, Fluid Lymphocytes Cancelled, Fluid Monocytes Cancelled, Fluid Plasma Cells Cancelled, Fluid Macrophages Cancelled, Fld Mesothelial Cells Cancelled, Fluid Other Cells Cancelled, Fluid Crystals NO CRYSTALS SEEN, Fluid Crystal Source SYNOVIAL, Fl Crystal Path Review Will follow, Fl Pathologist Comment Cancelled, Fluid Comment 2 Cancelled, Synovial Source RIGHT KNEE, Synovial Color Yellow, Synovial Appearance Cloudy, Synovial WBC 32.6000 H, Synovial RBC 23 H, Synovial Tot Cell Ct 33.0200 H, Synov Polynuclear WBCs 29.040, Synov Mononuclear WBCs 3.560, Synovial Neutrophils 90 H, Synovial Lymphocytes 6, Synovial Monocytes 4, Synovial Polynuclear % 89.1, Synovial Mononuclear % 10.9, Synovial Path Comment May follow 02/09/24 05:30: WBC 11.1 H, RBC 4.44, Hgb 11.5 L, Hct 35.7 L, MCV 80.4 L, MCH 25.9 L, MCHC 32.2, RDW Std Deviation 43.0, RDW Coeff of Kj 14.6, Plt Count 304, MPV 10.1, Immature Gran % (Auto) 0.500, Neut % (Auto) 83.2 H, Lymph % (Auto) 6.8 L, [place] % (Auto) 8.9, Eos % (Auto) 0.3, Baso % (Auto) 0.3, Absolute Neuts (auto) 9.2 H, Absolute Lymphs (auto) 0.75 L, Nucleated RBC % 0, Sodium 136, Potassium 3.2 L, Chloride 101, Carbon Dioxide 28.0, Anion Gap 7, BUN 16, Creatinine 0.60, Estim Creat Clear Calc 120.36, Est GFR (MDRD) Af Amer 132, Est GFR (MDRD) Non-Af 109, BUN/Creatinine Ratio 26.6 H, Glucose 122 H, Calcium 8.8, Magnesium 2.2 Micro: Microbiology 02/09/24 01:06 Fluid - Synovial (joint) Gram Stain - Final Imaging Radiology Impression Chest X-Ray 02/09/24 05:28 IMPRESSION: No radiographic evidence of acute cardiopulmonary disease. Electronically Signed: Fredo Johnson MD at 6:30 EDT , Assessment & Plan Assessment/Plan (1) Effusion of left knee: PLAN: Her diagnosis and treatment options regarding her left knee effusion, previous knee surgery, posttraumatic arthritis, probable septic knee discussed with her and her family at length. I explained based on her current numbers she has a synovial white cell count of about 32,000, reported PMN percentage at 95%, elevated ESR, elevated CRP. Seemingly normal temperature and WBC. Gram stain reported as multiple white blood cells as well as rare gram-positive cocci. Based on patient's clinical exam history and physical and available laboratory work I would recommend arthroscopic irrigation debridement of the knee. They understand and agree. They understand infection can be limb or life- threatening. No guarantees stated or implied. Possible need for repeat surgeries explained. Possibility of placing a drain discussed briefly. Risk of surgery including but not limited to from operative or postoperative complications. Risk of anesthetic complications such as heart attacks, strokes, seizures, or . Risk of infections. Risk of damage to nerves arteries tendons. Risk of inadvertent fractures or dislocations. Risk of bone or wound healing complications. Possibility of nonunion malunion pain stiffness weakness. Possible need for further surgery such as hardware removal. Risk of DVT PE and other potential complications could lead to or disability explained. No guarantees were stated or implied. All of their questions were answered. Appropriate informed consent was obtained and signed for surgical intervention. She will continue on the medical service. Infectious disease service has been consulted. Continue on appropriate IV antibiotics. Plan to use aspirin 81 mg twice a day postoperatively for DVT prevention. JACEY mena and SARINAs.
[2024-02-09] MEDS: Epinephrine (1 mg/ml) 1 MG/ML VIAL ×2 (10:20→10:26)
[2024-02-09] MEDS: morphine PF (epidural) 5 MG/10 ML Vial (10:29)
[2024-02-09] MEDS: Lidocaine 1% /Epi 1:100 (20ml) 20 ML Vial (10:30)
[2024-02-09 10:38] LABS: Ferritin 504 ng/mL (8-252); Iron 16 ug/dL (50-170); Iron Binding Capacity,Total 137 ug/dL (250-450); PERCENT IRON SATURATION 11.7 % (15.0-55.0)
--- NOTE | 2024-02-09 10:55 | PCM.OP.BLANK ---
Problems Associated Problem List Diagnoses (1) Effusion of left knee: Operative Report Date of Procedure: 02/09/24 Preoperative diagnosis: Left knee pain, effusion, probable septic knee, posttraumatic arthritis Postoperative diagnosis : Same plus medial and lateral meniscus tears Procedure: Diagnostic video arthroscopy, arthroscopic irrigation debridement, arthroscopic partial medial and lateral meniscectomy, diffuse chondroplasty Surgeon: Dr. Massimo Coats Anesthesia: General, Dr. العلي Special medications: IV vancomycin, piperacillin Please refer to ER records in regards to fluids given. EBL less than 20 Complications none Indications for surgery: Patient is a 59-year-old female with a long-standing history of left knee pain. She developed knee pain and swelling after recent mushroom hunting. She has been into the ER 3 times in the past week. Diagnosed finally with a possible knee infection. Patient failed adequate nonoperative treatment for the knee pain. Laboratory findings discussed with patient and her family. Due to persistent symptoms they wish to proceed with knee arthroscopy. Findings: Intraoperative findings were consistent with her preoperative history, physical, radiographic exam. She did have significant thick fluid consistent with infection throughout the knee joint. Some hypertrophic synovium. She had significant degenerative changes throughout the patellofemoral joint medial and lateral knee joint. She had degenerative meniscus tearing medially and laterally. She had signs of previous partial meniscectomy especially medially. No loose bodies identified. Pictures taken throughout. 9 L of fluid irrigated through the knee. Last liter of fluid did have 2 g of Ancef added Details of procedure: Patient was taken to the OR transfer to the OR table. Nonoperative limb was appropriately padded, JACEY hose and SCD applied. Patient was placed under the anesthetic agent. Operative knee was examined. No signs of infection. Operative upper thigh was well-padded and ultimately placed in a well-padded thigh galindo. Operative lower extremity was prepped and draped in usual orthopedic sterile fashion for the procedure. Local anesthetic agent was sterilely injected into the proposed arthroscopic portals. Lateral portal was established with a knife. Took us through skin only. Dull trocar took us into the joint. The scope was placed through the lateral portal. Medial portal and ultimately established using a spinal needle followed by a knife through skin, followed by a dull trocar into the joint. Probe was placed to the medial portal. She had diffuse synovitis throughout the knee. She had thickened yellowish fluid throughout the knee joint. This was debrided with a 4.0 shaver. We began in the suprapatellar pouch as well as the patellofemoral joint followed by the medial gutter followed by the medial compartment. Signs of previous meniscectomy noted. Partial tearing of the remaining meniscus was identified and lightly shaved. Synovial tissue from the anterior aspect of the knee carefully resected with a shaver going from medial to the intercondylar notch. ACL identified to be intact. We then went to the lateral compartment visualized and probed the lateral compartment as well as used the shaver their findings similar chondral changes as well as fraying of the lateral meniscus that was gently shaved as well. At this point the shaver and the arthroscope was switched in portals. We now debrided the lateral gutter as well as more lateral aspect of the patellofemoral joint. We again debrided anteriorly and anterior medial. We attempted to get the scope into the posterior medial and posterior lateral compartments. Based on her bony anatomy we could not get posterior medial. Going posterior lateral no loose bodies noted. No signs of further thickened fluid noted. Ultimately we reentered all the compartments anteriorly patellofemoral joint medial gutter lateral gutter medial lateral compartments and again provide continued to perform light debridement of the chondral surfaces from her arthritis and meniscal surfaces as well as synovial surfaces completing our debridement. The final liter of fluid had 2 g of Ancef added that were irrigated through the knee joint. Arthroscopic pictures were taken and saved throughout the procedure. Knee was drained of excess fluid. Arthroscopic instruments were removed. Arthroscopic portals closed with simple sutures of 4-0 nylon. Knee joint injected with a combination of local anesthetic and Duramorph. sterile bandage was applied. Patient was transferred to the room bed and recovery room in satisfactory condition. They will be readmitted to the hospital under the hospitalist service. Infectious disease has been consulted. On discharge she will be asked to, follow-up in the office in 7-10 days. Patient and the family understand discharge instructions, all of their questions answered. This note was generated with [employer] software. It may contain incorrect words, spelling, and punctuation that were not noted in checking the note before signing.
[2024-02-09] MEDS: Vancomycin IV 1,000 MG/200 ML BAG 200 MG IV (14:26)
[2024-02-09] MEDS: oxyCODONE 5 MG Tablet 10 MG PO ×2 (14:28→18:49)
[2024-02-09] MEDS: Piperacil/Tazobactam 3.375 GM in 0.9% Normal Saline (50mL MB+) 50 ML IV ×2 (15:29→22:27)
--- NOTE | 2024-02-09 17:05 | PCM.HOSP.N ---
Hospitalist Note Patient notable pain postoperatively. Already on oxycodone and Dilaudid rotating. In order to avoid having to increase his narcotics immediately will trial scheduled low-dose Toradol with dose now to start as well as low-dose gabapentin with dose now to start. If pain is ongoing certainly could then increase Toradol and may consider a low-dose constant scheduled fentanyl patch if pain is persistent.
[2024-02-09] MEDS: Ketorolac 15 MG/ML Vial IV ×2 (17:17→22:38)
[2024-02-09] MEDS: Gabapentin 100 MG Capsule PO (17:19)
[2024-02-09] MEDS: Potassium Chloride Oral Tablet 20 MEQ 40 MEQ PO (17:21)
[2024-02-09] MEDS: Docusate Sodium 100 MG Capsule PO (22:37)
[2024-02-10] VITALS (7 sets, daily range): BP systolic 106–113; BP diastolic 45–57; PULSE 88–104; RESP 12–18; TEMP 36.8–37.5; O2SAT 91–99
[2024-02-10] MEDS: Vancomycin IV 1,000 MG/200 ML BAG 200 MG IV (00:10)
[2024-02-10] MEDS: 0.9% Normal Saline (1000mL) 1,000 ML 100 ML IV (00:13)
[2024-02-10] MEDS: Piperacil/Tazobactam 3.375 GM in 0.9% Normal Saline (50mL MB+) 50 ML IV (05:46)
[2024-02-10] MEDS: Ketorolac 15 MG/ML Vial IV (05:48)
[2024-02-10 06:38] LABS: Absolute Lymphocyte Count 0.54 X10^3/uL (0.83-4.51); Absolute Neutrophil Count 6.9 X10^3/uL (2.0-7.7); Basophil# 0.03 X10^3/uL; Basophil% 0.4 % (0-1); Eosinophil# 0.03 X10^3/uL; Eosinophils% 0.4 % (0-5); Hematocrit 31.2 % (37-47); Hemoglobin 10.2 g/dL (12.0-15.0); Lymphocyte # 0.54 X10^3/ul (0.83-4.51); Lymphocyte % 6.4 % (19-41); Mean Corp Hgb Conc 32.7 g/dL (32-36); Mean Corpuscular Hgb 26.1 pg (27.0-32.0); Mean Corpuscular Volume 79.8 fL (81-99); Monocyte# 0.94 X10^3/uL; Monocyte% 11.1 % (0-10); NRBC Flagged by Analyzer 0 % (0-5); Neutrophil # 6.88 X10^3/uL (2.7-7.7); Neutrophil % 81.3 % (47-70); POSITIVE DIFFERENTIAL YES; Platelet Count 284 K/mm3 (150-450); RBC Distribution Width CV 14.8 % (11.6-14.6); RBC Distribution Width SD 43.5 fl (35.1-43.9); Red Blood Count 3.91 M/mm3 (4.2-5.4); White Blood Count 8.5 K/mm3 (4.4-11.0)
--- NOTE | 2024-02-10 06:48 | NURSING ---
pt pulse on 89% on 2lnc, o2 increased, pt encouraged to use the IS more, fluids held, dr holley notified via text, pt up into the recliner chair, o2 on at 4lnc
[2024-02-10 07:03] LABS: Vancomycin, Trough Level 25.6 ug/mL (5.0-15.0)
--- NOTE | 2024-02-10 07:07 | PCM.RX.CS ---
Consult Antibiotic Management Pharmacy has been consulted to manage selected antibiotic: Vancomycin Type of Intervention Type of Consult: Follow-up Suspected Infection Suspected Infection: Other (SEPTIC ARTHRITIS) Prior Doses of Antibiotics Prior Doses of Antibiotics Received/Current Regimen: Vancomycin 1 gram given 02/08 @ 1426, and 02/09 @ 0010 Labs Labs: Vancomycin Trough 25.6 ug/mL (5.0-15.0) H 02/10/24 06:03 Microbiology Microbiology: Microbiology 02/09/24 01:06 Fluid - Synovial (joint) Gram Stain - Final Dosing Weight Weight used for dosin kg Estimated Creatinine Clearance Estimated Creatinine Clearance: ~120 Goal Trough Goal Trough: 15-20 mcg/mL Pharmacy Plan for Drug Dosing Pharmacy Plan for Drug Dosing: Vancomycin trough = 25.6, drawn 6 hours after dose was given, will get random in 12 hours to reassess. Pharmacy Service will continue to monitor and adjust dosing as required. Follow-Up Labs Follow-Up Labs: Trough: Vancomycin Date/Time Labs Ordered Labs to be done on [date and time ordered]: 02/10/24 @ 1800
[2024-02-10 07:27] LABS: Anion Gap 6 (5-15); BUN 25 mg/dL (7-18); BUN/Creat Ratio 15.6 RATIO (10-20); Calcium,Total 7.9 mg/dL (8.5-10.1); Chloride 103 mmol/L (98-107); EST Glomerular Filtration Rate 35 mL/min (>60); Est Glom Filt Rate - Afr Amer 43 mL/min (>60); Estimated Creatinine Clearance 45.64 ml/min; Glucose 127 mg/dL (74-106); Potassium 3.7 mmol/L (3.5-5.1); Sodium Level 133 mmol/L (136-145)
[2024-02-10] MEDS: oxyCODONE 5 MG Tablet 10 MG PO ×3 (07:51→20:12)
[2024-02-10] MEDS: Docusate Sodium 100 MG Capsule PO ×2 (07:51→22:00)
[2024-02-10] MEDS: Furosemide 40 MG/4 ML Vial IV (07:51)
[2024-02-10] MEDS: Aspirin E.C. 81 MG Tablet PO ×2 (07:52→15:58)
[2024-02-10] MEDS: Gabapentin 100 MG Capsule PO ×2 (09:05→15:59)
--- NOTE | 2024-02-10 10:32 | PN.HOSP_ITS ---
Reason for Visit Reason for Visit: Left knee pain Subjective Subjective Mrs. Almazan is a 59-year-old white female who presented to the emergency department [facility] on 02/08/2024 with increasing left knee pain and medial left knee erythema that had been expanding quickly. She evidently had been having issues with her left knee for several years and had an arthroscopy done 12 years prior. [place] outside it puts a lot of strain on her knee. She had a recent presentation the emergency department about 4 years prior to presentation with knee pain and leg in 2 days following for the same knee pain. She was given medication for pain and asked to follow-up as an outpatient with orthopedics. The erythema deve loped prior to the most recent ER visit where she was admitted. Vital signs on presentation were overtly unremarkable. She was afebrile. Her CBC did show leukocytosis with a white count 11.1 and a left shift showing an 83.2% neutrophilia. She is mildly anemic at 11.5 however this appears to be stable compared to previous. An ESR was done on 02/08/2024 and found to be markedly elevated at 88. Her chemistry panel was unremarkable other than some mild hypokalemia with potassium of 3.2 and this has since normalized. Iron studies were done and are more consistent anemia of chronic disease with a TIBC of 137 total iron of 16 iron saturation of 11.5. Her ferritin was elevated at 504 however suspect this is acute phase reactant. A CRP was also done on 02/08/2024 and found to be markedly elevated at 300. Knee x-rays were done at both her previous ER visits with the most recent one being on 02/06/2024 and showed no acute fracture or malalignment, large suprapatellar joint effusion and moderate medial compartment predominant with tricompartmental degenerative arthrosis of the knee. Given the above, there is significant concern for acute joint infection and she was admitted in the hospital and placed on vancomycin and Zosyn. An orthopedic consult was placed and she was evaluated by Dr. Massimo Coats on 02/09/2024 who was significantly concerned of septic knee after arthrocentesis was performed showing PMNs at 95%, elevated ESR and elevated CRP. Gram stain was reported out with multiple white blood cells as well as rare gram-positive cocci. She was taken to the OR on 02/09/2024 at which time arthroscopy was performed with arthroscopic debridement, partial medial and lateral meniscectomy and diffuse chondroplasty. Patient did develop some respiratory distress overnight as she was getting quite a bit of fluids and I am sure got fluids intraoperatively as well with her an tibiotics. Highly suspect she is somewhat volume overload and she was given Lasix 40 mg. Patient states she is feeling better now and has been able to be weaned off of 4 L down to 2 L and sats are 100%. Denies any complaints at this time. States she was able to walk fairly well with a walker and weightbearing as tolerated. Will need DME supplies and prescription for therapy at discharge. Objective Data Objective Data Vital Signs: Vital Signs Temp Pulse Resp BP Pulse Ox O2 Del Method O2 Flow Rate 98.9 F 90 12 106/51 L 95 Nasal Cannula 4 02/10/24 07:54 02/10/24 07:54 02/10/24 07:54 02/10/24 07:54 02/10/24 07:54 02/10/24 08:14 02/10/24 08:14 Oxygen Flow Rate (L/min) 4 Oxygen Delivery Method Nasal Cannula Weight: 93.9 kg Body Mass Index (BMI) 32.4 Intake & Output: Intake and Output for Last 24 Hours 02/08/24 02/09/24 02/10/24 23:59 23:59 23:59 Intake Total 1890 / 1890 1161.67 / 1161.67 Output Total Balance 1865 / 1865 1161.67 / 1161.67 Lab / Micro Data 02/10/24 06:03 02/10/24 06:03 Labs: Laboratory Results - last 24 hr 02/09/24 05:30: Iron 16 L, TIBC 137 L, Iron Saturation 11.7 L, Ferritin 504 H 02/10/24 06:03: WBC 8.5, RBC 3.91 L, Hgb 10.2 L, Hct 31.2 L, MCV 79.8 L, MCH 26.1 L, MCHC 32.7, RDW Std Deviation 43.5, RDW Coeff of Kj 14.8 H, Plt Count 284, MPV 10.0, Immature Gran % (Auto) 0.400, Neut % (Auto) 81.3 H, Lymph % (Auto) 6.4 L, Mccurtain % (Auto) 11.1 H, Eos % (Auto) 0.4, Baso % (Auto) 0.4, Absolute Neuts (auto) 6.9, Absolute Lymphs (auto) 0.54 L, Nucleated RBC % 0, Sodium 133 L, Potassium 3.7, Chloride 103, Carbon Dioxide 24.0, Anion Gap 6, BUN 25 H, Creatinine 1.60 H, Estim Creat Clear Calc 45.64, Est GFR (MDRD) Af Amer 43 L, Est GFR (MDRD) Non-Af 35 L, BUN/Creatinine Ratio 15.6, Glucose 127 H, Calcium 7.9 L, Vancomycin Trough 25.6 H Micro: Microbiology 02/09/24 01:06 Fluid - Synovial (joint) Gram Stain - Final Physical Exam Const alert, oriented x3, no apparent distress, healthy appearing and well nourished Constitutional Narrative: Obese, middle-aged, white female, sitting up in a chair at her bedside, at the bedside, appears comfortable nontoxic, very pleasant HEENT head/scalp atraumatic and moist oral mucous membranes HEENT Narrative: Mallampati 3, no thrush Head and Scalp: normocephalic Resp normal respiratory effort, no retractions, no use of accessory muscles and No clear to auscultation bilaterally Resp Narrative: Few crackles at bases bilaterally Auscultation: crackles; Negative for rhonchi or wheezes Cardio regular rate, regular rhythm, S1 normal heart sound, S2 normal heart sound, no murmurs, no rub, no gallops and no clicks GI normal to inspection, nondistended, normoactive bowel sounds, soft to palpation and non-tender Extremity no clubbing, cyanosis or edema Extremity Narrative: Left knee with postoperative bandage and Benito bandage in place Neuro oriented x3 and no focal motor deficits Neuro Narrative: Decreased range of motion left knee due to recent surgery and septic joint Speech: speech normal Psych affect normal Psych Narrative: Eye contact is good, patient is very pleasant, interacts appropriately Assessment & Plan Assessment/Plan (1) Septic arthritis of knee, left: (2) Knee pain, left: (3) Hypoxia: (4) STIVEN (acute kidney injury): PLAN: Plan Left septic arthritis -Continue IV ceftriaxone and Zosyn -Fluid cultures are growing Staph aureus and rare gram-positive organism with an aerobic studies pending -Blood cultures remain pending -Await sensitivities to narrow -Postop day 1 irrigation and debridement with chondroplasty and meniscectomy -Weightbearing as tolerated -Will schedule Tylenol 1000 every 8 -Discontinue Toradol due to rising creatinine -Continue as needed oxycodone -Add bowel regimen -PT/OT following - will need outpatient PT at discharge Acute hypoxia -Patient was up to 4 L which started through the night -Suspect volume overload based on surgical I's and O's as well as IV fluids at 100 cc/h -Discontinue IV fluids -Lasix 40 mg IV push x 1 dose -Oxygenation is already improving -Continue incentive spirometry and Acapella -Encourage out of bed and mobility STIVEN -Patient does appear to have had some lower blood pressures intraoperatively -Suspect change in renal function may be related to intraoperative hypotension as well as Toradol -Discontinue Toradol -Avoid nephrotoxins -Repeat BMP in a.m. Mild hyponatremia -Sodium is 133 down from 136 yesterday -Diuretics given -Repeat in a.m. Microcytic anemia -Very mild -Iron studies are not consistent with anemia of acute blood loss or iron deficiency and more consistent with anemia of chronic disease -It may very well be related to septic arthritis -Ferritin is elevated secondary to being acute phase reactant with infection -Would recommend outpatient follow-up with no further assessment as long as remains stable Hypokalemia -Resolved Hypertension -Continue home amlodipine -As needed hydralazine available for systolic blood pressure greater 160 Obesity -BMI 32.4 -Recommend weight loss -Complicates treatment, prognosis, outcomes DVT prophylaxis -SCDs ordered on admission due to surgical plans -Will now start heparin 3 times daily CODE STATUS -full code Charges/Coding Visit Charges Inpatient E&M: 54615 Subs Hosp L2
[2024-02-10 12:27] LABS: Source / Synovial Fluid LEFT KNEE
--- NOTE | 2024-02-10 12:28 | CASEMGMT ---
Addendum entered by Sabi Mathew 02/10/24 13:18: Pt would like to use [facility] outpatient therapy and will set up appointment on her own. Original Note: DREA JACKSON Assessment: Face to Face with pt for initial transition planning/care coordination assessment. DREA JACKSON introduced self and role at [facility], pt voices understanding and consents to assessment. Pt in room. Pt is A&O x4 and answers all questions appropriately at this time. Care providers, pharmacy, and demographics verified/updated. Admitting Dx: Septic Joint PCP:Celia Specialists: [facility] Preferred Pharmacy: [facility] Insurance: [employer] [facility] Prescription Benefit: yes LNOK: Fredo Almazan - Living Arrangements: Pt lives with in a 2 story home with 3 steps to enter without handrails, states he is able to install this. Pt reports she was independent with ADL's at home prior to hospitalization and denies any concerns going home. Transportation: Pt drives self, and or other family can transport until able to drive again. DME: Crutches, raised toilet seat. HHC/SNF: Denies Hx of. Pt states no concerns with going home at time of dc. Pt needs FWW. Provided pt with a verbal local in network list of DME companies, pt chose [id number]. Pt is interested in outpatient therapy. Pt states no further concerns/needs. CM to follow. Advised pt to ask CM if any further question/concerns/needs arise, voices understanding. Pt Goal: Home with outpatient therapy Plan: Home with outpatient therapy, obtain FWW. Greg SHEPARD CM
[2024-02-10] MEDS: Ceftriaxone 2 GM in 0.9% Normal Saline (50mL MB+) 50 ML IV (12:46)
--- NOTE | 2024-02-10 13:02 | PCM.CONS.GEN ---
Assessment & Plan Assessment/Plan (1) Septic arthritis of knee, left: PLAN: Taken to OR 02/09/[address] Coats for I&D. Fluid cx with staph aureus and GPC so far. Will narrow to vanc/ceftriaxone. Will follow, thank you (2) STIVEN (acute kidney injury): HPI Consult Data Date of Consult: 02/10/24 HPI Narrative Reason for Consultation: septic arthritis HPI Narrative: SUZANNE CHRISTIE, is a 59 F who presented with one week progressive L knee pain, swelling. Pain worsened with walking. Developed low grade fever/chills, then redness in knee. No recent abx, infections, procedures, trauma. Came back to ED, aspiration done, started on vanc/zosyn, taken to OR 02/[address] Coats for I&D. Feeling much better today, pain improved. Full ROS performed and neg except as noted above. [facility] Medical History Hypertension Obesity Osteoarthritis of left knee Home Medications hydrocodone-acetaminophen 5-325mg 5mg-325mg 1 tab PO Q6H PRN PRN Pain 3 days #10 TABLETS 02/06/24 [Rx Last Taken Unknown] amlodipine 5 mg tablet 5 mg PO QPM 02/08/24 [History Last Taken Unknown] cyanocobalamin (vitamin B-12) 1,000 mcg tablet 1,000 mcg PO DAILY 02/08/24 [History Last Taken Unknown] ibuprofen 800 mg tablet (IBU) 800 mg PO Q8H PRN pain 02/08/24 [History Last Taken Unknown] Allergy/AdvReac Type Severity Reaction Status Date / Time No Known Allergies Allergy Verified 02/08/24 23:38 Family History (Updated 02/09/24 @ 05:[address] Ayan Dior MD) Other Heart disease Surgical History (Updated 02/09/24 @ 05:[address] Ayan Dior MD) Status post arthroscopy of left knee Status post section Social History Smoking Status: Never smoker Physical Exam Const alert, oriented x3 and no apparent distress General Appearance: cooperative HEENT normocephalic and head/scalp atraumatic Eyes PERRL and EOMs intact bilaterally Neck supple and No nodes Resp normal air movement and clear to auscultation bilaterally Cardio regular rate and regular rhythm GI soft to palpation, non-tender and non-distended Extremity General Extremity: Negative for edema Skin no rashes or lesions noted Skin Narrative: L knee mild swelling Neuro CN's II-XII intact bilaterally Lab / Micro Data Attestation: I reviewed the patient's lab results. 02/10/24 06:03 02/10/24 06:03 Labs: Laboratory Results - last 24 hr 02/09/24 01:06: Fluid Source Cancelled, Fluid Color Cancelled, Fluid Appearance Cancelled, Fluid WBC Cancelled, Fluid RBC Cancelled, Fluid Tot Cell Count Cancelled, Fld Polynuclear WBCs # Cancelled, Fld Polynuclear WBCs % Cancelled, Fluid Mononuclear WBCs Cancelled, Fld Mononuclear WBCs % Cancelled, Fluid Neutrophils Cancelled, Fluid Lymphocytes Cancelled, Fluid Monocytes Cancelled, Fluid Plasma Cells Cancelled, Fluid Macrophages Cancelled, Fld Mesothelial Cells Cancelled, Fluid Other Cells Cancelled, Fluid Crystals NO CRYSTALS SEEN, Fluid Crystal Source SYNOVIAL, Fl Crystal Path Review Will follow, Fl Pathologist Comment Cancelled, Fluid Comment 2 Cancelled, Synovial Source LEFT KNEE, Synovial Color Yellow, Synovial Appearance Cloudy, Synovial WBC 32.6000 H, Synovial RBC 23 H, Synovial Tot Cell Ct 33.0200 H, Synov Polynuclear WBCs 29.040, Synov Mononuclear WBCs 3.560, Synovial Neutrophils 90 H, Synovial Lymphocytes 6, Synovial Monocytes 4, Synovial Polynuclear % 89.1, Synovial Mononuclear % 10.9, Synovial Path Comment May follow 02/10/24 06:03: WBC 8.5, RBC 3.91 L, Hgb 10.2 L, Hct 31.2 L, MCV 79.8 L, MCH 26.1 L, MCHC 32.7, RDW Std Deviation 43.5, RDW Coeff of Kj 14.8 H, Plt Count 284, MPV 10.0, Immature Gran % (Auto) 0.400, Neut % (Auto) 81.3 H, Lymph % (Auto) 6.4 L, Foster % (Auto) 11.1 H, Eos % (Auto) 0.4, Baso % (Auto) 0.4, Absolute Neuts (auto) 6.9, Absolute Lymphs (auto) 0.54 L, Nucleated RBC % 0, Sodium 133 L, Potassium 3.7, Chloride 103, Carbon Dioxide 24.0, Anion Gap 6, BUN 25 H, Creatinine 1.60 H, Estim Creat Clear Calc 45.64, Est GFR (MDRD) Af Amer 43 L, Est GFR (MDRD) Non-Af 35 L, BUN/Creatinine Ratio 15.6, Glucose 127 H, Calcium 7.9 L, Vancomycin Trough 25.6 H Micro: Microbiology 02/09/24 01:06 Fluid - Synovial (joint) Gram Stain - Final 02/09/24 01:06 Fluid - Synovial (joint) Body Fluid Culture - Preliminary Staphylococcus aureus Gram positive organism
[2024-02-10] MEDS: Heparin Injection (Vial) 5,000 UNIT/ML VIAL 5000 UNIT SC ×2 (14:25→22:00)
[2024-02-10] MEDS: Acetaminophen 500 MG Tablet 1000 MG PO ×2 (14:25→21:59)
[2024-02-10 16:06] LABS: Pathologist Comment Reviewed
--- NOTE | 2024-02-10 16:21 | CHAPLAIN ---
Type of Pastoral Visit _x__ Initial Visit ___ Follow-up Visit ___ On-call Visit ___ General Patient Visit ___ Spiritual Assessment ___ Family Conference ___ Bereavement ___ Rapid Response ___ Code Blue ___ Other (describe below) Pastoral Care Referral From _x__ Patient _x__ Family ___ Nurse ___ Physician ___ Lap Cutter Truer Operator ___ Armored Cable Machine Operator ___ Other (describe below) Sacrament/Intervention _x__ Active listening ___ Anointing ___ Mandaeism ___ Bereavement ___ Communion ___ Daniela exploration ___ ___ Life review _x__ Prayer ___ Reconciliation ___ Sacrament of Sick _x__ Supportive presence ___ Wedding ___ Other (describe below) Pastoral Comments patient has family members in the room; pt admits need for answers about her infection and pain; pt is spiritual and welcomes spiritual care and support including prayer
--- NOTE | 2024-02-10 17:22 | PCM.PN.ORT ---
Subjective Subjective This 59-year-old female is 1 day following left knee arthroscopy with irrigation debridement. She was up working with physical therapy today. She states it went well. The pain medicine has been helping. She denies chest pain shortness of breath dizziness or calf pain. She was seen by infectious disease today. Sensitivities from wound culture are still pending she was positive for Staph aureus and gram-positive cocci. Objective Data Objective Data Inspection of left knee is with intact surgical site sutures intact without active drainage erythema warmth or signs of infection. Palpable effusion is present. Range of motion left knee is 0 to 60 degrees with stiffness. Negative valgus varus stress test bilaterally. Negative Akash bilaterally without signs of DVT. Patient is able to actively plantar and dorsiflex bilateral ankles against resistance neurovascularly intact. Vital Signs: Vital Signs Temp Pulse Resp BP Pulse Ox O2 Del Method O2 Flow Rate 98.3 F 94 18 108/51 L 99 Room Air 4 02/10/24 11:51 02/10/24 11:51 02/10/24 11:51 02/10/24 11:51 02/10/24 11:51 02/10/24 13:24 02/10/24 10:55 Oxygen Flow Rate (L/min) 4 Oxygen Delivery Method Room Air Weight: 93.9 kg Body Mass Index (BMI) 32.4 Intake & Output: Intake and Output for Last 24 Hours 02/08/24 02/09/24 02/10/24 23:59 23:59 23:59 Intake Total 1890 / 1890 1211.67 / 1211.67 Output Total / 25 Balance 1865 / 1865 1211.67 / 1211.67 Lab / Micro Data Attestation: I reviewed the patient's lab results. 02/10/24 06:03 02/10/24 06:03 Labs: Laboratory Results - last 24 hr 02/09/24 01:06: Fluid Source Cancelled, Fluid Color Cancelled, Fluid Appearance Cancelled, Fluid WBC Cancelled, Fluid RBC Cancelled, Fluid Tot Cell Count Cancelled, Fld Polynuclear WBCs # Cancelled, Fld Polynuclear WBCs % Cancelled, Fluid Mononuclear WBCs Cancelled, Fld Mononuclear WBCs % Cancelled, Fluid Neutrophils Cancelled, Fluid Lymphocytes Cancelled, Fluid Monocytes Cancelled, Fluid Plasma Cells Cancelled, Fluid Macrophages Cancelled, Fld Mesothelial Cells Cancelled, Fluid Other Cells Cancelled, Fluid Crystals NO CRYSTALS SEEN, Fluid Crystal Source SYNOVIAL, Fl Crystal Path Review Will follow, Fl Pathologist Comment Cancelled, Fluid Comment 2 Cancelled, Synovial Source LEFT KNEE, Synovial Color Yellow, Synovial Appearance Cloudy, Synovial WBC 32.6000 H, Synovial RBC 23 H, Synovial Tot Cell Ct 33.0200 H, Synov Polynuclear WBCs 29.040, Synov Mononuclear WBCs 3.560, Synovial Neutrophils 90 H, Synovial Lymphocytes 6, Synovial Monocytes 4, Synovial Polynuclear % 89.1, Synovial Mononuclear % 10.9, Synovial Path Comment Reviewed 02/10/24 06:03: WBC 8.5, RBC 3.91 L, Hgb 10.2 L, Hct 31.2 L, MCV 79.8 L, MCH 26.1 L, MCHC 32.7, RDW Std Deviation 43.5, RDW Coeff of Kj 14.8 H, Plt Count 284, MPV 10.0, Immature Gran % (Auto) 0.400, Neut % (Auto) 81.3 H, Lymph % (Auto) 6.4 L, [place] % (Auto) 11.1 H, Eos % (Auto) 0.4, Baso % (Auto) 0.4, Absolute Neuts (auto) 6.9, Absolute Lymphs (auto) 0.54 L, Nucleated RBC % 0, Sodium 133 L, Potassium 3.7, Chloride 103, Carbon Dioxide 24.0, Anion Gap 6, BUN 25 H, Creatinine 1.60 H, Estim Creat Clear Calc 45.64, Est GFR (MDRD) Af Amer 43 L, Est GFR (MDRD) Non-Af 35 L, BUN/Creatinine Ratio 15.6, Glucose 127 H, Calcium 7.9 L, Vancomycin Trough 25.6 H Micro: Microbiology 02/09/24 01:06 Fluid - Synovial (joint) Gram Stain - Final 02/09/24 01:06 Fluid - Synovial (joint) Body Fluid Culture - Preliminary Staphylococcus aureus Gram positive organism Assessment & Plan Assessment/Plan (1) Septic arthritis of knee, left: QUALIFIERS: Septic arthritis organism: staphylococcal Qualified Code(s): M00.062 - Staphylococcal arthritis, left knee PLAN: - Status post left knee arthroscopy with irrigation and debridement postop day #1 -Discussed the indications for repeat left knee joint aspiration today. She declined at this time. She would like to continue with compression and watchful wait. She feels the pain is continuing to improve. -Continue oxycodone as needed for pain control -Continue PT/OT weightbearing as tolerated left lower extremity with a walker. I stressed the importance of patient continuing to work on range of motion exercises many times throughout the day. -DVT prophylaxis bilateral teds SCDs aspirin 81 mg twice daily for DVT prophylaxis x 4 weeks postoperative -Continue antibiotic management per infectious disease -Continue postoperative medical management per hospitalist -Patient is orthopedically stable and okay for discharge to home when cleared medically having adequate pain control doing well with physical therapy and sensitivities have been resulted -Recommend follow-up with orthopedics 7 to 10 days postdischarge for reassessment and suture removal. Please do not hesitate to contact orthopedics with any further orthopedic concerns
[2024-02-10 18:41] LABS: Vancomycin, Random Level 16.8 ug/mL (0.0-15.0)
--- NOTE | 2024-02-10 19:45 | PCM.RX.CS ---
Consult Antibiotic Management Pharmacy has been consulted to manage selected antibiotic: Vancomycin Type of Intervention Type of Consult: Follow-up Suspected Infection Suspected Infection: Other (septic arthritis) Prior Doses of Antibiotics Prior Doses of Antibiotics Received/Current Regimen: 1000mg iv q8h Labs Labs: Sodium 133 mmol/L (136-145) L 02/10/24 06:03 Potassium 3.7 mmol/L (3.5-5.1) 02/10/24 06:03 Chloride 103 mmol/L (98-107) 02/10/24 06:03 Carbon Dioxide 24.0 mmol/L (21.0-32.0) 02/10/24 06:03 Anion Gap 6 (5-15) 02/10/24 06:03 BUN 25 mg/dL (7-18) H 02/10/24 06:03 Creatinine 1.60 mg/dL (0.55-1.02) H 02/10/24 06:03 Est GFR (MDRD) Af Amer 43 mL/min (>60) L 02/10/24 06:03 Est GFR (MDRD) Non-Af 35 mL/min (>60) L 02/10/24 06:03 BUN/Creatinine Ratio 15.6 RATIO (10-20) 02/10/24 06:03 Glucose 127 mg/dL (74-106) H 02/10/24 06:03 Vancomycin Trough 25.6 ug/mL (5.0-15.0) H 02/10/24 06:03 Random Vancomycin 16.8 ug/mL (0.0-15.0) H 02/10/24 17:58 Microbiology Microbiology: Microbiology 02/09/24 01:06 Fluid - Synovial (joint) Gram Stain - Final 02/09/24 01:06 Fluid - Synovial (joint) Body Fluid Culture - Preliminary Staphylococcus aureus Gram positive organism Dosing Weight Weight used for dosin.9 kg Estimated Creatinine Clearance Estimated Creatinine Clearance: 46ml/min Goal Trough Goal Trough: 15-20 mcg/mL Pharmacy Plan for Drug Dosing Pharmacy Plan for Drug Dosing: Random level 16.8 approximately 18hrs post dose with previous trough this AM 25.6. Renal Cr increase to 1.6 with CrCl ~46ml/min. Recommend restarting with dose change of 1250mg iv q12h. Trough before 4th dose. Pharmacy Service will continue to monitor and adjust dosing as required. Follow-Up Labs Follow-Up Labs: Trough: Vancomycin (4.24.24 0730)
[2024-02-10] MEDS: Vancomycin HCl 1,250 MG in 0.9% Normal Saline (250mL Bag) 250 ML 167 MG IV (20:12)
[2024-02-10] MEDS: Ondansetron 4 MG/2 ML Vial IV (20:30)
[2024-02-11 02:22] VITALS: BP 114/56; PULSE 88; RESP 18; TEMP 37.2; O2SAT 92
[2024-02-11] MEDS: oxyCODONE 5 MG Tablet 10 MG PO ×4 (02:42→20:25)
[2024-02-11] MEDS: Heparin Injection (Vial) 5,000 UNIT/ML VIAL 5000 UNIT SC ×2 (06:23→14:08)
[2024-02-11] MEDS: Acetaminophen 500 MG Tablet 1000 MG PO ×3 (06:23→21:23)
[2024-02-11 07:40] VITALS: BP 101/55; PULSE 90; RESP 18; TEMP 37.8; O2SAT 88
[2024-02-11] MEDS: 0.9% Saline Lock 10 ML Syringe IV ×2 (07:53→16:09)
[2024-02-11] MEDS: Vancomycin HCl 1,250 MG in 0.9% Normal Saline (250mL Bag) 250 ML 167 MG IV (07:53)
[2024-02-11 07:55] LABS: Anion Gap 8 (5-15); BUN 29 mg/dL (7-18); BUN/Creat Ratio 13.4 RATIO (10-20); Calcium,Total 8.6 mg/dL (8.5-10.1); Chloride 103 mmol/L (98-107); Creatinine, Serum 2.16 mg/dL (0.55-1.02); EST Glomerular Filtration Rate 25 mL/min (>60); Est Glom Filt Rate - Afr Amer 30 mL/min (>60); Estimated Creatinine Clearance 33.81 ml/min; Glucose 127 mg/dL (74-106); Potassium 3.4 mmol/L (3.5-5.1); Sodium Level 135 mmol/L (136-145)
[2024-02-11 08:13] LABS: Absolute Lymphocyte Count 0.63 X10^3/uL (0.83-4.51); Absolute Neutrophil Count 7.1 X10^3/uL (2.0-7.7); Basophil# 0.03 X10^3/uL; Basophil% 0.3 % (0-1); Eosinophil# 0.07 X10^3/uL; Eosinophils% 0.8 % (0-5); Hematocrit 31.5 % (37-47); Hemoglobin 10.1 g/dL (12.0-15.0); Lymphocyte # 0.63 X10^3/ul (0.83-4.51); Lymphocyte % 7.2 % (19-41); Mean Corp Hgb Conc 32.1 g/dL (32-36); Mean Corpuscular Hgb 25.9 pg (27.0-32.0); Mean Corpuscular Volume 80.8 fL (81-99); Mean Platelet Vol. 10.3 fl (6.2-12.0); Monocyte# 0.77 X10^3/uL; Monocyte% 8.8 % (0-10); NRBC Flagged by Analyzer 0 % (0-5); Neutrophil # 7.14 X10^3/uL (2.7-7.7); Neutrophil % 82.1 % (47-70); Platelet Count 348 K/mm3 (150-450); RBC Distribution Width CV 15.2 % (11.6-14.6); White Blood Count 8.7 K/mm3 (4.4-11.0)
[2024-02-11] MEDS: Gabapentin 100 MG Capsule PO ×3 (08:29→17:20)
[2024-02-11] MEDS: Docusate Sodium 100 MG Capsule PO ×2 (08:29→21:24)
[2024-02-11] MEDS: Aspirin E.C. 81 MG Tablet PO ×2 (08:29→17:20)
--- NOTE | 2024-02-11 08:57 | US_ITS ---
STUDY: RENAL ULTRASOUND - COMPLETE REASON FOR EXAM: Female, 59 years old. STIVEN TECHNIQUE: Ultrasound evaluation of the kidneys was performed with real-time and static saunders-scale imaging. COMPARISON: None. FINDINGS: RIGHT KIDNEY: Normal location of the right kidney, which is normal in size. The right kidney measures 12.1 cm x 6.5 cm x 5.4 cm. There is a normal cortex of the right kidney. The renal cortex measures 1.4 cm. There is no right renal mass or cyst. There are no right renal calculi. There is no right hydronephrosis. DISTAL RIGHT URETER: There is non-visualization of the distal right ureter. There is no demonstrated right ureterovesical junction calculus. There is a visualized right ureteral jet. LEFT KIDNEY: Normal location of the left kidney, which is normal in size. The left kidney measures 11.9 cm x 6.1 cm x 5.8 cm. There is a normal cortex of the left kidney. The renal cortex measures 2.0 cm. There is no left renal mass or cyst. There are no left renal calculi. There is no left hydronephrosis. DISTAL LEFT URETER: There is non-visualization of the distal left ureter. There is no demonstrated left ureterovesical junction calculus. There is a visualized left ureteral jet. BLADDER: The distended urinary bladder has a volume of 59 ml. There is a normal wall thickness of the distended urinary bladder. There is no demonstrated mass within the urinary bladder. There are no demonstrated bladder calculi. US/Kidney and Bladder IMPRESSION: Normal ultrasound of the kidneys and urinary bladder. Electronically Signed: Kashif Redding MD at 13:08 EDT ,
--- NOTE | 2024-02-11 09:20 | PCM.RX.CS ---
Consult Antibiotic Management Pharmacy has been consulted to manage selected antibiotic: Vancomycin Type of Intervention Type of Consult: Follow-up Suspected Infection Suspected Infection: Other (septic joint) Labs Labs: Sodium 135 mmol/L (136-145) L 02/11/24 06:48 Potassium 3.4 mmol/L (3.5-5.1) L 02/11/24 06:48 Chloride 103 mmol/L (98-107) 02/11/24 06:48 Carbon Dioxide 24.0 mmol/L (21.0-32.0) 02/11/24 06:48 Anion Gap 8 (5-15) 02/11/24 06:48 BUN 29 mg/dL (7-18) H 02/11/24 06:48 Creatinine 2.16 mg/dL (0.55-1.02) H 02/11/24 06:48 Est GFR (MDRD) Af Amer 30 mL/min (>60) L 02/11/24 06:48 Est GFR (MDRD) Non-Af 25 mL/min (>60) L 02/11/24 06:48 BUN/Creatinine Ratio 13.4 RATIO (10-20) 02/11/24 06:48 Glucose 127 mg/dL (74-106) H 02/11/24 06:48 Vancomycin Trough 25.6 ug/mL (5.0-15.0) H 02/10/24 06:03 Random Vancomycin 16.8 ug/mL (0.0-15.0) H 02/10/24 17:58 Microbiology Microbiology: Microbiology 02/09/24 01:06 Fluid - Synovial (joint) Gram Stain - Final 02/09/24 01:06 Fluid - Synovial (joint) Body Fluid Culture - Preliminary Meth. resistant Staph. aureus Pharmacy Plan for Drug Dosing Pharmacy Plan for Drug Dosing: DAILY ASSESSMENT Current Vancomycin Dose: 1250MG Q12 Number of Doses Received: 5 Current Renal Function: SCR 2.16 MG/DL CRCL 33 ML/MIN (SCR INCREASED FROM 1.6 YESTERDAY) Renal Function Trend: WORSENED Lab/Micro: FLUID CX WITH MRSA (PRELIMINARY) Any Change in Vanc Plan: Yes, will hold further dosing due to increase in SCr. Will have previously scheduled level drawn tomorrow morning. AM 0800 dose hung at 0753, Called nurse Maryjane at 0910 and asked her to stop dose. Pending Level: 02/12/24 @ 0730 Pharmacy Service will continue to monitor and adjust dosing as required.
--- NOTE | 2024-02-11 09:37 | PN.HOSP_ITS ---
Reason for Visit Reason for Visit: Left knee pain/skin erythema Subjective Subjective No significant issues overnight however upon removal of the bandage today it appears as if the erythema has extended some from previous. I did review pictures this is the first does have actually seen her knee as it was dressed from postoperative dressings yesterday. It does appear as if the erythema has extended a bit up and down her leg medially. The knee is still swollen which is to be expected postoperatively. We did discuss that her renal function is a bit worse than it had been even yesterday and that workup is in progress. Patient has no new pain complaints and states her knee is not really any more sore than it was previously. We did discuss the culture results being positive for MRSA. Objective Data Objective Data Vital Signs: Vital Signs Temp Pulse Resp BP Pulse Ox O2 Del Method O2 Flow Rate 100.1 F H 90 18 101/55 L 88 Room Air 2 02/11/24 07:40 02/11/24 07:40 02/11/24 07:40 02/11/24 07:40 02/11/24 07:40 02/11/24 08:00 02/11/24 02:36 Oxygen Flow Rate (L/min) 2 Oxygen Delivery Method Room Air Weight: 93.9 kg Body Mass Index (BMI) 32.4 Intake & Output: Intake and Output for Last 24 Hours 02/09/24 02/10/24 02/11/24 23:59 23:59 23:59 Intake Total 1890 / 1890 1486.67 / 1486.67 231.02 / 231.02 Output Total 500 / 500 Balance 1865 / 1865 1486.67 / 1186.67 -268.98 / -268.98 Lab / Micro Data 02/11/24 06:48 02/11/24 06:48 Labs: Laboratory Results - last 24 hr 02/09/24 01:06: Fluid Source Cancelled, Fluid Color Cancelled, Fluid Appearance Cancelled, Fluid WBC Cancelled, Fluid RBC Cancelled, Fluid Tot Cell Count Cancelled, Fld Polynuclear WBCs # Cancelled, Fld Polynuclear WBCs % Cancelled, Fluid Mononuclear WBCs Cancelled, Fld Mononuclear WBCs % Cancelled, Fluid Neutrophils Cancelled, Fluid Lymphocytes Cancelled, Fluid Monocytes Cancelled, Fluid Plasma Cells Cancelled, Fluid Macrophages Cancelled, Fld Mesothelial Cells Cancelled, Fluid Other Cells Cancelled, Fluid Crystals NO CRYSTALS SEEN, Fluid Crystal Source SYNOVIAL, Fl Crystal Path Review Will follow, Fl Pathologist Comment Cancelled, Fluid Comment 2 Cancelled, Synovial Source LEFT KNEE, Synovial Color Yellow, Synovial Appearance Cloudy, Synovial WBC 32.6000 H, Synovial RBC 23 H, Synovial Tot Cell Ct 33.0200 H, Synov Polynuclear WBCs 29.040, Synov Mononuclear WBCs 3.560, Synovial Neutrophils 90 H, Synovial Lymphocytes 6, Synovial Monocytes 4, Synovial Polynuclear % 89.1, Synovial Mononuclear % 10.9, Synovial Path Comment Reviewed 02/10/24 17:58: Random Vancomycin 16.8 H 02/11/24 06:48: WBC 8.7, RBC 3.90 L, Hgb 10.1 L, Hct 31.5 L, MCV 80.8 L, MCH 25.9 L, MCHC 32.1, RDW Std Deviation 45.0 H, RDW Coeff of Kj 15.2 H, Plt Count 348, MPV 10.3, Immature Gran % (Auto) 0.800, Neut % (Auto) 82.1 H, Lymph % (Auto) 7.2 L, [place] % (Auto) 8.8, Eos % (Auto) 0.8, Baso % (Auto) 0.3, Absolute Neuts (auto) 7.1, Absolute Lymphs (auto) 0.63 L, Nucleated RBC % 0, Sodium 135 L , Potassium 3.4 L, Chloride 103, Carbon Dioxide 24.0, Anion Gap 8, BUN 29 H, Creatinine 2.16 H, Estim Creat Clear Calc 33.81, Est GFR (MDRD) Af Amer 30 L, Est GFR (MDRD) Non-Af 25 L, BUN/Creatinine Ratio 13.4, Glucose 127 H, Calcium 8.6 Micro: Microbiology 02/09/24 01:06 Fluid - Synovial (joint) Gram Stain - Final 02/09/24 01:06 Fluid - Synovial (joint) Body Fluid Culture - Preliminary Meth. resistant Staph. aureus Physical Exam Const alert, oriented x3, no apparent distress and well nourished Constitutional Narrative: Obese, middle-aged, white female, sitting up in a chair at her bedside, at the bedside, appears comfortable, nontoxic, very pleasant, nursing is at the bedside HEENT head/scalp atraumatic and moist oral mucous membranes HEENT Narrative: Mallampati 3, no thrush Head and Scalp: normocephalic Resp normal respiratory effort, no retractions, no use of accessory muscles and clear to auscultation bilaterally Resp Narrative: Lungs are clear today Auscultation: Negative for crackles, rhonchi or wheezes Cardio regular rate, regular rhythm, S1 normal heart sound, S2 normal heart sound, no murmurs, no rub, no gallops and no clicks GI normal to inspection, nondistended, normoactive bowel sounds, soft to palpation and non-tender Extremity no clubbing, cyanosis or edema Extremity Narrative: Left knee with effusion noted, postoperative arthroscopic incisions are clean dry and intact, erythema has extended from previous marking up a little bit medially and distally medially from previous however pain is not any worse Neuro oriented x3 and no focal motor deficits Neuro Narrative: Decreased range of motion left knee due to recent surgery and septic joint Speech: speech normal Psych Psych Narrative: Patient is a little bit tearful today but does interact appropriately and is able to gain composure after further conversation and reassurance Assessment & Plan Assessment/Plan (1) Septic arthritis of knee, left: QUALIFIERS: Septic arthritis organism: staphylococcal Qualified Code(s): M00.062 - Staphylococcal arthritis, left knee (2) Knee pain, left: (3) Hypoxia: (4) STIVEN (acute kidney injury): PLAN: Plan Left septic arthritis-MRSA -Continue IV ceftriaxone and vancomycin -Culture from aspirate of the joint on admission shows MRSA -Blood cultures are pending -Postop day 2 irrigation and debridement with chondroplasty and meniscectomy -Aspiration repeat was recommended yesterday however patient declined -May need to pursue today and patient seems more willing -She states she is worried as they did not numb in the emergency department and it was quite painful for her -Weightbearing as tolerated -Continue scheduled Tylenol 1000 every 8 -Continue as needed oxycodone -Continue bowel regimen -PT/OT following - will need outpatient PT at discharge as well as DME -ID and orthopedic surgery are following-appreciate input Acute hypoxia -Secondary to mild volume overload and atelectasis -Resolved -patient on room air -Oxygen saturations did dip to 88% at night while she was sleeping and I do suspect she may have a component of STEPHAN -Encouraged continued I-S and Pep therapy to avoid atelectasis STIVEN -Patient does appear to have had some lower blood pressures intraoperatively -Suspect change in renal function may be related to intraoperative hypotension as well as Toradol and possibly antibiotic -Toradol was discontinued yesterday -Check UA/urine sodium/urine creatinine and calculate FeNa -Check renal ultrasound -Hold home antihypertensives -Avoid nephrotoxins -Repeat BMP in a.m. -If creatinine does not show signs of stabilization will consider nephrology consult in next 24 hours Hypokalemia -Potassium 3.3 -40 medical events p.o. potassium given -Repeat in a.m. Mild hyponatremia -Still mildly low at 135 but seems to be stabilizing -Diuretics given -Repeat in a.m. Microcytic anemia -Very mild and has stabilized postoperatively -Iron studies are not consistent with anemia of acute blood loss or iron deficiency and more consistent with anemia of chronic disease -It may very well be related to septic arthritis -Ferritin is elevated secondary to being acute phase reactant with infection -Would recommend outpatient follow-up with no further assessment as long as remains stable Hypertension -Hold home amlodipine as pressures are a bit low -As needed hydralazine available for systolic blood pressure greater 160 Obesity -BMI 32.4 -Recommend weight loss -Complicates treatment, prognosis, outcomes DVT prophylaxis -SCDs ordered on admission due to surgical plans -Will now start heparin 3 times daily CODE STATUS -full code Charges/Coding Visit Charges Inpatient E&M: 73204 Subs Hosp L2
[2024-02-11 09:41] VITALS: BP 105/51; PULSE 78; RESP 18; TEMP 36.7; O2SAT 91
--- NOTE | 2024-02-11 10:14 | PCM.PN.ID ---
Physical Exam Narrative Feeling better, knee is numb. No fever. Mild nausea earlier. Const alert and no apparent distress General Appearance: cooperative Resp normal air movement and clear to auscultation bilaterally Cardio regular rate and regular rhythm GI soft to palpation, non-tender and non-distended Skin Skin Narrative: L knee swelling, fading erythema ID ID: Route of nutrition/ use of supplements: [] Nutritional Intake: [] IV Site: [] Paulino Catheter: [] Assessment & Plan Assessment/Plan (1) Septic arthritis of knee, left: QUALIFIERS: Septic arthritis organism: staphylococcal Qualified Code(s): M00.062 - Staphylococcal arthritis, left knee PLAN: MRSA septic arthritis. Taken to OR 02/09/[address] Coats for I&D. Will narrow to vanc. STIVEN still worsening. Will follow (2) STIVEN (acute kidney injury):
[2024-02-11 15:00] VITALS: BP 111/52; PULSE 86; RESP 18; TEMP 37.1; O2SAT 95
--- NOTE | 2024-02-11 15:20 | NURSING ---
PAIN FINALLY DOWN FROM 9 TO 5-6/10 AFTER OXYCODONE/GABAPENTIN/TYLENOL. PT NOT WANTING TO TAKE THE DILAUDID UNTIL DR DE LA GARZA IS HERE TO ASPIRATE HER KNEE AT BEDSIDE. SPOKE W/DR DIAZ, SHE SAID PT COULD HAVE 0.5MG DILAUDID X1 NOW SO PT COULD STILL HAVE THE OTHER DILAUDID AVAILABLE WHEN DR DE LA GARZA ARRIVES. DISCUSSED THIS W/PT AND SHE IS CURRENTLY DECLINING. TOLD HER TO CALL IF SHE CHANGES HER MIND.
[2024-02-11] MEDS: HYDROmorphone 1 MG/ML Syringe IV (16:09)
--- NOTE | 2024-02-11 16:42 | PN.ORTHO_ITS ---
Subjective Subjective Patient is postoperative day #2 from arthroscopic irrigation debridement of left knee for infection. She had some increasing pain and swelling earlier today. She denies fever or chills otherwise. Pain is better than before surgery. Seen with her present. Objective Data Objective Data Vital Signs: Vital Signs Temp Pulse Resp BP Pulse Ox O2 Del Method O2 Flow Rate 98.8 F 86 18 111/52 L 95 Room Air 2 02/11/24 15:00 02/11/24 15:00 02/11/24 15:02/11/24 15:02/11/24 15:02/11/24 15:00 02/11/24 02:36 Oxygen Flow Rate (L/min) 2 Oxygen Delivery Method Room Air Weight: 93.9 kg Body Mass Index (BMI) 32.4 Intake & Output: Intake and Output for Last 24 Hours 02/09/24 02/10/24 02/11/24 23:59 23:59 23:59 Intake Total 1890 / 1890 1486.67 / 1486.67 231.02 / 231.02 Output Total 500 / 500 Balance 1865 / 1865 1486.67 / 1186.67 -268.98 / -268.98 Lab / Micro Data Attestation: I reviewed the patient's lab results. 02/11/24 06:48 02/11/24 06:48 Labs: Laboratory Results - last 24 hr 02/10/24 17:58: Random Vancomycin 16.8 H 02/11/24 06:48: WBC 8.7, RBC 3.90 L, Hgb 10.1 L, Hct 31.5 L, MCV 80.8 L, MCH 25.9 L, MCHC 32.1, RDW Std Deviation 45.0 H, RDW Coeff of Kj 15.2 H, Plt Count 348, MPV 10.3, Immature Gran % (Auto) 0.800, Neut % (Auto) 82.1 H, Lymph % (Auto) 7.2 L, [place] % (Auto) 8.8, Eos % (Auto) 0.8, Baso % (Auto) 0.3, Absolute Neuts (auto) 7.1, Absolute Lymphs (auto) 0.63 L, Nucleated RBC % 0, Sodium 135 L , Potassium 3.4 L, Chloride 103, Carbon Dioxide 24.0, Anion Gap 8, BUN 29 H, Creatinine 2.16 H, Estim Creat Clear Calc 33.81, Est GFR (MDRD) Af Amer 30 L, Est GFR (MDRD) Non-Af 25 L, BUN/Creatinine Ratio 13.4, Glucose 127 H, Calcium 8.6 Micro: Microbiology 02/09/24 01:06 Fluid - Synovial (joint) Gram Stain - Final 02/09/24 01:06 Fluid - Synovial (joint) Body Fluid Culture - Preliminary Meth. resistant Staph. aureus Radiography Diagnostic Testing: Radiology Impression Renal Ultrasound 02/11/24 08:57 IMPRESSION: Normal ultrasound of the kidneys and urinary bladder. Electronically Signed: Kashif Redding MD at 13:08 EDT , Physical Exam Narrative Left knee has swelling diffusely at the joint. Mild redness and warmth. Left knee motion is 0 to 40 degrees. No calf pain or swelling. Negative Homans' sign. Arthroscopic portals appear healing nicely. She is not able to lift her leg up off the bed today. Culture results noted to be consistent with MRSA septic left knee Assessment & Plan Assessment/Plan (1) Septic arthritis of knee, left: QUALIFIERS: Septic arthritis organism: staphylococcal Qualified Code(s): M00.062 - Staphylococcal arthritis, left knee PLAN: Her diagnosis and treatment options regarding her left knee recurrent swelling after irrigation debridement for septic knee discussed with her and her . She did wish to have her knee aspirated. Reportedly infectious disease doctor did not think the fluid would need to be sent for further studies or cultures. After obtaining appropriate consent patient's left knee was prepped with Betadine and alcohol. I injected the site with a total of 10 cc of 2% lidocaine plain under standard sterile technique. I then cleaned the area with alcohol and Betadine. I used an 18-gauge needle through a superior lateral approach and obtained 72 cc of bloody joint fluid. Somewhat thickened. Patient tolerated that very well. ABD and Kerlix and Benito wrap applied. Fluid was discarded. She will continue on IV antibiotics per the infectious disease service. Continue on Tylenol, pain medication if needed. Ice if needed. She can work on range of motion of the knee. She can be weightbearing as tolerated with crutches or walker if needed. I will plan to have myself or a physician child care center assistant director reevaluate her tomorrow for possible repeat aspiration if needed. She understands if she is discharged to home on IV antibiotics she could call the office Saturday through Saturday during business hours for knee aspiration if needed. She understands if there is recurrent effusions we could consider repeat aspirations or possibly return to the OR for irrigation and debridement and possible placement of a drain. The nurse is going to discussed with the hospitalist her use of 81 mg aspirin twice a day as well as subcu heparin shots 3 times a day. This may make her more likely to bleed back into her knee joint.
[2024-02-11] MEDS: Lidocaine 2% (20 ml mdv) 20 ML Vial INFILT (17:00)
[2024-02-11 17:36] LABS: Mucous, Urine 0 SEEN /hpf (<or=2+); Red Blood Cells-Urine 0 SEEN /hpf (0-5)
[2024-02-11 17:46] LABS: Color, Urine Yellow (Yellow); Glucose, Dipstick Normal (Normal); Ketone-Dipstick Negative (Negative); Leukocyte Esterase-Dipstick Negative /ul (Negative); Nitrite-Dipstick Negative (Negative); Occult Blood-Urine Negative /ul (Negative); Protein-Dipstick 30 mg/dl (Negative); Urine Bilirubin Dipstick Negative (Negative); Urine Clarity Clear (Clear); Urine Urobilinogen 4 mg/dl (Normal)
[2024-02-11 18:15] LABS: Bacteria RARE /hpf (None Seen); Squamous Epithelial Cells - UA 0-5 SEEN /hpf (5-10); White Blood Cells 0-5 SEEN /hpf (0-5)
[2024-02-11 18:35] LABS: Urine Sodium 6 mmol/L (Not Establ.)
[2024-02-11 21:00] VITALS: BP 119/64; PULSE 95; RESP 18; TEMP 36.4; O2SAT 95
[2024-02-12] MEDS: oxyCODONE 5 MG Tablet 10 MG PO ×3 (04:40→16:26)
[2024-02-12] MEDS: Acetaminophen 500 MG Tablet 1000 MG PO ×2 (04:45→13:20)
[2024-02-12 07:31] VITALS: BP 115/63; PULSE 80; RESP 14; TEMP 37.2; O2SAT 97
[2024-02-12 07:42] LABS: Body Fluid QC Type(s) BF4Q
[2024-02-12 07:52] LABS: Absolute Lymphocyte Count 0.46 X10^3/uL (0.83-4.51); Absolute Neutrophil Count 5.6 X10^3/uL (2.0-7.7); Basophil# 0.03 X10^3/uL; Basophil% 0.4 % (0-1); Eosinophil# 0.08 X10^3/uL; Eosinophils% 1.1 % (0-5); Hematocrit 28.3 % (37-47); Hemoglobin 9.2 g/dL (12.0-15.0); Lymphocyte # 0.46 X10^3/ul (0.83-4.51); Lymphocyte % 6.6 % (19-41); Mean Corp Hgb Conc 32.5 g/dL (32-36); Mean Corpuscular Hgb 25.6 pg (27.0-32.0); Mean Corpuscular Volume 78.8 fL (81-99); Mean Platelet Vol. 9.8 fl (6.2-12.0); NRBC Flagged by Analyzer 0 % (0-5); Neutrophil # 5.62 X10^3/uL (2.7-7.7); Neutrophil % 80.8 % (47-70); POSITIVE DIFFERENTIAL YES; Platelet Count 341 K/mm3 (150-450); RBC Distribution Width SD 43.6 fl (35.1-43.9); Red Blood Count 3.59 M/mm3 (4.2-5.4)
[2024-02-12] MEDS: Aspirin E.C. 81 MG Tablet PO (08:08)
[2024-02-12] MEDS: Docusate Sodium 100 MG Capsule PO (08:08)
[2024-02-12] MEDS: Gabapentin 100 MG Capsule PO ×2 (08:08→13:20)
[2024-02-12 08:17] LABS: Anion Gap 6 (5-15); BUN 24 mg/dL (7-18); BUN/Creat Ratio 13.7 RATIO (10-20); Calcium,Total 8.6 mg/dL (8.5-10.1); Chloride 105 mmol/L (98-107); Creatinine, Serum 1.75 mg/dL (0.55-1.02); EST Glomerular Filtration Rate 32 mL/min (>60); Est Glom Filt Rate - Afr Amer 39 mL/min (>60); Estimated Creatinine Clearance 41.73 ml/min; Glucose 127 mg/dL (74-106); Magnesium 2.6 mg/dL (1.6-2.6); Phosphorus 2.8 mg/dL (2.5-4.9); Potassium 3.2 mmol/L (3.5-5.1); Sodium Level 135 mmol/L (136-145)
[2024-02-12 08:21] LABS: Vancomycin, Trough Level 15.4 ug/mL (5.0-15.0)
--- NOTE | 2024-02-12 08:57 | PCM.RX.CS ---
Consult Antibiotic Management Pharmacy has been consulted to manage selected antibiotic: Vancomycin Type of Intervention Type of Consult: Follow-up Suspected Infection Suspected Infection: Other (SEPTIC JOINT) Prior Doses of Antibiotics Prior Doses of Antibiotics Received/Current Regimen: no current scheduled dose but the most recent dose was vanc 1250mg IV q12h until it was held due to worsening renal function Labs Labs: Sodium 135 mmol/L (136-145) L 02/12/24 07:30 Potassium 3.2 mmol/L (3.5-5.1) L 02/12/24 07:30 Chloride 105 mmol/L (98-107) 02/12/24 07:30 Carbon Dioxide 24.0 mmol/L (21.0-32.0) 02/12/24 07:30 Anion Gap 6 (5-15) 02/12/24 07:30 BUN 24 mg/dL (7-18) H 02/12/24 07:30 Creatinine 1.75 mg/dL (0.55-1.02) H 02/12/24 07:30 Est GFR (MDRD) Af Amer 39 mL/min (>60) L 02/12/24 07:30 Est GFR (MDRD) Non-Af 32 mL/min (>60) L 02/12/24 07:30 BUN/Creatinine Ratio 13.7 RATIO (10-20) 02/12/24 07:30 Glucose 127 mg/dL (74-106) H 02/12/24 07:30 Vancomycin Trough 15.4 ug/mL (5.0-15.0) H 02/12/24 07:30 Random Vancomycin 16.8 ug/mL (0.0-15.0) H 02/10/24 17:58 Microbiology Microbiology: Microbiology 02/09/24 01:06 Fluid - Synovial (joint) Gram Stain - Final 02/09/24 01:06 Fluid - Synovial (joint) Body Fluid Culture - Preliminary Meth. resistant Staph. aureus 02/09/24 01:06 Fluid - Synovial (joint) Anaerobic Culture - Final No anaerobic bacteria isolated. Dosing Weight Weight used for dosin.9 kg Estimated Creatinine Clearance Estimated Creatinine Clearance: 42 ml/min Goal Trough Goal Trough: 15-20 mcg/mL Pharmacy Plan for Drug Dosing Pharmacy Plan for Drug Dosing: The vanc level drawn today was 15.4. It was drawn at 07:30 (approx 24 hours after the last dose of 1250mg before it was held when it was mostly infused already). This is within goal range so will restart dosing at a new dose of 1000mg IV q24h. Of note, the patient's Scr did go back down a little today to 1.75 from 2.16 yesterday. Will continue to monitor renal function. Will order a trough to be drawn before the 3rd dose. Pharmacy Service will continue to monitor and adjust dosing as required. Follow-Up Labs Follow-Up Labs: Trough: Vancomycin Date/Time Labs Ordered Labs to be done on [date and time ordered]: 02/14/24 6359
[2024-02-12 09:48] VITALS: BP 113/50; PULSE 89; RESP 16; TEMP 36.9; O2SAT 98
--- NOTE | 2024-02-12 10:31 | CASEMGMT ---
Addendum entered by Erin Acosta 02/12/24 15:34: DREA JACKSON to room. Further questions answered for pt, , and dtrCallie. They deny having further discharge needs/concerns. Addendum entered by Erin Acosta 02/12/24 15:03: Pt confirms she is okay w/the insurance benefits/cost provided by [facility]. [facility] verified they have all info needed and will deliver atb's/supplies to pt's home tonight. Batsheva @ [facility] made aware and state they will call pt after 4:30 PM today to set up time for SOC tomorrow. Addendum entered by Erin Acosta 02/12/24 13:38: Batsheva @ [facility] requests it is verified w/Dr Loera that he will follow for HHC orders re: IV atb's. She states they will check w/pt's PCP re: following for therapy. DREA JACKSON spoke w/Dr Loera who confirms he will follow for HHC/IV atb's. Addendum entered by Erin Acosta 02/12/24 13:29: Script for WW received from Dr Massimo Coats and sent to [employer] via [employer], along w/signed consignment form. Pt given FWW from [employer] supply @ [facility]. Per [facility], pt's cost is $701.09/week until deductible met. Pt and made aware and are agreeable. Script for IV Vanco 1 GM Q [address] Loera. Script sent to [facility] via [employer] and also faxed to [facility]. Addendum entered by Erin Acosta 02/12/24 13:05: Per [facility], they are able to accept pt w/SOC slated tomorrow, as long as pt is discharged today and IV atb's/supplies can be delivered to pt's home this evening. Message received from [facility] via [employer] that pt will be covered @ 100% once $9,450 deductible is met and currently $312.50 has been met to date. Call to [facility] and they stated pt's hospitalization will go towards pt's deductible and they will not bill pt while there are other outstanding/pending amt's to be applied toward deductible. They state they will be able to deliver meds/supplies to pt's home tonight as long as they receive the ATB script by 3 PM today. PICC has been inserted and documentation sent to [facility] via [employer]. Original Note: DREA JACKSON NOTE: Per Dr Hyatt, pt medically ready for discharge today and will need IV atb's @ d/c. Per Dr Loera, he will be in around noon today and will write script for IV atb's at that time. DREA JACKSON to room. Introduced self and role. Pt resting in bed. Pt wishes to discharge home. Discussed option of HHC vs OP atb infusion. Pt states she prefers doing HHC. She states her daughter, Callie Aguilar, is an RN and lives about 5 min away and would be able to come to her home daily or twice a day to administer IV atb's M-F and pt states she (pt) is willing to learn to do them on weekends and when Callie not available. Discussed HHC agency and pt states prefers [facility] and declines wanting list of other options unless [facility] unable to accept. Pt made aware HHC could also do PT/OT, as insurance does not allow HHC at same time as OP therapy. She voices understanding and agreeable to HHC doing therapy. Also discussed infusion co and pt provided w/list. She chooses [facility]. Call placed to Batsheva @ [facility] and referral made. Awaiting acceptance. Referral sent to [facility] via [employer] and requested financials to be determined. Will send ATB script and PICC documentation when available. Farhad COWAN RN, CM
[2024-02-12] MEDS: Potassium Chloride Oral Tablet 20 MEQ 40 MEQ PO (11:01)
[2024-02-12] MEDS: Vancomycin IV 1,000 MG/200 ML BAG 200 MG IV (12:21)
[2024-02-12] MEDS: 0.9% Normal Saline (500mL Bag) 500 ML 999 ML IV (12:21)
[2024-02-12] MEDS: 0.9 % NaCl (Sterile) Posiflush 10 mL IV (12:22)
--- NOTE | 2024-02-12 12:28 | PRO.PCM_ITS ---
Procedure Report Date of Procedure: 02/12/24 Assessment & Plan Assessment/Plan (1) Septic arthritis of knee, left: QUALIFIERS: Septic arthritis organism: staphylococcal Qualified Code(s): M00.062 - Staphylococcal arthritis, left knee Procedures Radiology Radiology Access Procedures: PICC Procedure Time Out Time Out Informed consent given: Yes Consent signed: Yes Time out checklist: patient, procedure, site marked/identified, positioning of patient, supplies available and allergies confirmed Time out staff in room: Yes Time out verified: Yes Time out date: 02/12/24 Time out time: 11:12 PICC Line Consent Screening tool completed:: Yes Consent obtained:: Yes Consent given by (patient or responsible green party):: patient Insertion Reason for Insertion: Management Instructor Medication Date of Insertion: 02/12/24 Ok to use: Yes Type of PICC inserted: Single Power PICC PICC Lot #: [id number] PICC Reference #: [id number] Microintroducer Used: Yes (in kit) Ultrasound/Equipment Used: Probe Cover Kit Trimmed Length (cm): 46 Insertion Length (cm): 41 Exposed Length (cm): 5 Tip Placement: Caval Atrial Junction Placement Confirmation: 3CG Insertion Vein: Right Brachial Insertion Attempts: 1 Local Anesthesia Used: Lidocaine 1% (in kit) Dressing Applied: Statlock and Tegaderm CHG Arm Measurement above site (in cm): 33 Patient Tolerated Procedure: Well Threading Difficulties: No Comments Comment: Patient identity was verified with two patient identifiers. Informed consent was obtained and time-out was completed. Hands were sanitized. The patient was positioned supine with right arm at 90 degrees. The patient's upper arm vasculature was assessed using ultrasound. Patency of the right brachial vein was confirmed and the vein was externally marked. An external measurement was obtained of 46 cm. External leads were applied to the patient's right upper chest and laterally and inferior of the umbilicus on the mid axillary line. Cap, mask, and prep gloves were donned. The underdrape was placed under the patient's arm. The site was prepped with chlorhexidine, and tourniquet was loosely applied. Prep gloves were discarded, and hands were sanitized. The sterile kit was opened with additional supplies dropped in. Sterile gown and gloves were donned, and the patient was draped. The sterile kit was assembled with needle, introducer, needless connector, and catheter lumen flushed with sterile normal saline. The marked site of insertion was anesthetized with 1% l idocaine from the kit. Patient tolerated well. The right brachial vein was then accessed using ultrasound guidance and guidewire was inserted to safety grover. The tourniquet was released. The access needle was removed while securing the guidewire in place. The site was again anesthetized with 1% lidocaine, prior to insertion of introducer sheath and dilator. Patient tolerated the insertion well. The catheter was trimmed to a length of 46 cm. Using 3C guidance, the catheter was then inserted through the introducer sheath, slowly. There was no resistance on insertion. The catheter followed the expected course of the vessel using 3CG tracking. The introducer sheath was retracted and peeled away, incrementally, while keeping the catheter secured. Maximal p-wave, without deflection, confirming placement in the cavoatrial junction, was obtained at an insertion length of 41 cm, leaving 5 cm external. The stylet was removed. A flushed needleless connector was attached to the lumen. Aspiration of the lumen was performed to remove any air and confirm blood return. Blood return was verified and the lumen was flushed with 10 ml of sterile normal saline in a pulsatile fashion. The lumen was clamped with the last pulsed flush. Total sterile flushes used for the insertion was 5 10 ml syringes, 1 from the kit. Finally, the insertion site was cleaned with chlorhexidine, and the catheter was secured using a StatLock. The site was covered with a Tegaderm CHG Dressing and disinfecting caps were applied. Baseline arm circumference was obtained at the insertion site and measured 33 cm. The patient was provided with a patient education handout on PICC line care and verbalized understanding of infection prevention, heavy lifting restriction, maintaining mobility, and watching for an y signs of infection. The primary nurse is aware that the PICC line is ready for use.
--- NOTE | 2024-02-12 13:16 | PN.ORTHO_ITS ---
Subjective Subjective Patient is status post left knee arthroscopic irrigation debridement for MRSA septic knee. She did have some recurrence of pain and swelling after being up and around on her knee today. She did wish to have it aspirated. Objective Data Objective Data Vital Signs: Vital Signs Temp Pulse Resp BP Pulse Ox O2 Del Method O2 Flow Rate 98.5 F 89 16 113/50 L 98 Room Air 2 02/12/24 09:48 02/12/24 09:48 02/12/24 09:48 02/12/24 09:48 02/12/24 09:48 02/12/24 09:50 02/11/24 02:36 Oxygen Flow Rate (L/min) 2 Oxygen Delivery Method Room Air Weight: 93.9 kg Body Mass Index (BMI) 32.4 Intake & Output: Intake and Output for Last 24 Hours 02/10/24 02/11/24 02/12/24 23:59 23:59 23:59 Intake Total 1486.67 / 1486.67 231.02 / 231.02 480 / 480 Output Total 500 / 500 450 / 450 Balance 1486.67 / 1186.67 -268.98 / -268.98 30 Lab / Micro Data 02/12/24 07:30 02/12/24 07:30 Labs: Laboratory Results - last 24 hr 02/11/24 17:25: Urine Color Yellow, Urine Clarity Clear, Urine pH 6.0, Ur Specific [place] 1.010, Urine Protein 30 H, Urine Glucose (UA) Normal, Urine Ketones Negative, Urine Occult Blood Negative, Urine Nitrite Negative, Urine Bilirubin Negative, Urine Urobilinogen 4 H, Ur Leukocyte Esterase Negative, Urine RBC 0 SEEN, Urine WBC 0-5 SEEN, Ur Squamous Epith Cells 0-5 SEEN, Urine Bacteria RARE, Urine Mucus 0 SEEN, Ur Random Sodium 6, Urine Creatinine 74.40 02/12/24 07:30: WBC 7.0, RBC 3.59 L, Hgb 9.2 L, Hct 28.3 L, MCV 78.8 L, MCH 25.6 L, MCHC 32.5, RDW Std Deviation 43.6, RDW Coeff of Kj 15.0 H, Plt Count 341, MPV 9.8, Immature Gran % (Auto) 1.100 H, Neut % (Auto) 80.8 H, Lymph % (Auto) 6.6 L, [place] % (Auto) 10.0, Eos % (Auto) 1.1, Baso % (Auto) 0.4, Absolute Neuts (auto) 5.6, Absolute Lymphs (auto) 0.46 L, Nucleated RBC % 0, Sodium 135 L, Potassium 3.2 L, Chloride 105, Carbon Dioxide 24.0, Anion Gap 6, BUN 24 H, Creatinine 1.75 H, Estim Creat Clear Calc 41.73, Est GFR (MDRD) Af Amer 39 L, Est GFR (MDRD) Non-Af 32 L, BUN/Creatinine Ratio 13.7, Glucose 127 H, Calcium 8.6, Phosphorus 2.8, Magnesium 2.6, Vancomycin Trough 15.4 H Micro: Microbiology 02/09/24 01:06 Fluid - Synovial (joint) Gram Stain - Final 02/09/24 01:06 Fluid - Synovial (joint) Body Fluid Culture - Preliminary Meth. resistant Staph. aureus 02/09/24 01:06 Fluid - Synovial (joint) Anaerobic Culture - Final No anaerobic bacteria isolated. Physical Exam Narrative Patient's left knee has a moderate effusion. Left knee motion is 0 to 30 degrees. She was not able to do a straight leg raise against gravity prior to aspiration. She was able to after aspiration. No calf pain or swelling. Negative Homans' sign. Cultures positive for MRSA left knee. Assessment & Plan Assessment/Plan (1) Septic arthritis of knee, left: QUALIFIERS: Septic arthritis organism: staphylococcal Qualified Code(s): M00.062 - Staphylococcal arthritis, left knee PLAN: Her diagnosis and treatment options regarding her left knee swelling, septic knee discussed with her and her . She did wish to have the knee aspirated. She will plan to continue on IV antibiotics per the infectious disease service. She will follow-up in the office in 7 to 10 days. Procedure: After obtaining appropriate consent patient's left knee was prepped with Betadine and alcohol. The area was anesthetized with 10 cc of 2% lidocaine plain. She tolerated that well. Area was then cleaned with Betadine and alcohol. She underwent aspiration with an 18-gauge needle. 52 cc of bloody fluid was obtained from her knee. She tolerated that well. Sterile bandage was applied. Fluid was discarded. Sterile bandage applied with sterile 4 x 4 sponges, Curlex and Benito wrap.
--- NOTE | 2024-02-12 13:55 | DS.PCM_ITS ---
Providers Date of Admission: 02/09/24 Date of Discharge: 02/12/24 Primary Care Physician: Dr. Cayden Yang MD Consultations 02/09/24 06:31 Consult: Infectious Disease Routine Consulting Provider: Raj Loera Reason for Consult: Septic joint EMERGENT Consult: No Notified: Yes Date Notified: 02/09/24 Time Notified: 07:04 Method of Notification: Text Consult: Orthopedics Routine Consulting Provider: Massimo Coats Reason for Consult: septic joint EMERGENT Consult: No Notified: Yes Date Notified: 02/09/24 Time Notified: 05:18 Method of Notification: ED Physician Initiated Reason For Visit: SEPTIC JOINT Diagnosis Discharge Diagnosis (1) Septic arthritis of knee, left: Status: Acute Code(s): M00.9 - Pyogenic arthritis, unspecified Qualifiers: Septic arthritis organism: staphylococcal Qualified Code(s): M00.062 - Staphylococcal arthritis, left knee Medications at Discharge Home Medications amlodipine 5 mg tablet 5 mg PO QPM 02/08/24 cyanocobalamin (vitamin B-12) 1,000 mcg tablet 1,000 mcg PO DAILY 02/08/24 ibuprofen 800 mg tablet (IBU) 800 mg PO Q8H PRN pain 02/08/24 acetaminophen 500 mg tablet 1,000 mg (2 x 500 mg) PO Q8 #0 tabs 02/12/24 aspirin 81 mg tablet,delayed release 81 mg PO BIDCM #0 tabs 02/12/24 docusate sodium 100 mg capsule 100 mg PO BID #60 caps 02/12/24 oxycodone 5 mg tablet 10 mg (2 x 5 mg) PO Q6H PRN pain 1 week #56 tabs 02/12/24 vancomycin 1 gram/200 mL in dextrose 5 % intravenous piggyback 1,000 mg IV Q24H 10 days #2,000 mL 02/12/24 Hospital Course Operations arthroscopy, knee Procedures PICC line placement and - (Renal ultrasound/chest x-ray/arthrocentesis x 3) Summary of Care Provided Minutes Spent on Discharge: 37 Hospital Course: Mrs. Almazan is a 59-year-old white female who presented to the emergency department [facility] on 02/08/2024 with increasing left knee pain and medial left knee erythema that had been expanding quickly. She evidently had been having issues with her left knee for several years and had an arthroscopy done 12 years prior[place] it puts a lot of strain on her knee. She had a recent presentation the [facility] about 4 years prior to presentation with knee pain and leg in 2 days following for the same knee pain. She was given medication for pain and asked to follow-up as an outpatient with orthopedics. The erythema developed prior to the most recent ER visit where she was admitted. Vital signs on presentation were overtly unremarkable. She was afebrile. Her CBC did show leukocytosis with a white count 11.1 and a left shift showing an 83.2% neutrophilia. She is mildly anemic at 11.5 however this appears to be stable compared to previous. An ESR was done on 02/08/2024 and found to be markedly elevated at 88. Her chemistry panel was unremarkable other than some mild hypokalemia with potassium of 3.2 and this has since normalized. Iron studies were done and are more consistent anemia of chronic disease with a TIBC of 137 total iron of 16 iron saturation of 11.5. Her ferritin was elevated at 504 however suspect this is acute phase reactant. A CRP was also done on 02/08/2024 and found to be markedly elevated at 300. Knee x-rays were done at both her previous ER visits with the most recent one being on 02/06/2024 and showed no acute fracture or malalignment, large suprapatellar joint effusion and moderate medial compartment predominant with tricompartmental degenerative arthrosis of the knee. Given the above, there is significant concern for acute joint infection and she was admitted in the hospital and placed on vancomycin and Zosyn. An orthopedic consult was placed and she was evaluated by Dr. Massimo Coats on 02/09/2024 who was significantly concerned of septic knee after arthrocentesis was performed showing PMNs at 95%, elevated ESR and elevated CRP. Gram stain was reported out with multiple white blood cells as well as rare gram-positive cocci. She was taken to the OR on 02/09/2024 at which time arthroscopy was performed with arthroscopic debridement, partial medial and lateral meniscectomy and diffuse chondroplasty. She did develop some postoper ative hypoxia and required 4 L of nasal cannula. She was given Lasix 40 mg IV push x 1 dose and was able to be weaned off oxygen. IV fluids were discontinued at that time as well. She was also instructed to work extensively with incentive spirometry and Acapella. Arthrocentesis cultures grew out MRSA and she was evaluated by infectious disease. At the time of discharge, she was on vancomycin and will continue this for 10 days via PICC which was placed on 02/12/2024. Serial lab has been ordered by infectious disease and she will be following up as an outpatient with Dr. Barraza within the next 1 to 2 weeks after discharge. She did have a rise in her serum creatinine postoperatively with a peak at 2.10. At the time of discharge she was trending back down and was 1.75. I suspect this is multifactorial however urine sodium was quite low so we did give her a 500 cc bolus at the time of discharge. I have asked that she get a follow-up basic metabolic profile on 02/14/2024 to reassess her renal function and electrolytes. To further arthrocentesis were performed by Dr. Coats which showed some bloody fluid. Given this her DVT prophylaxis with heparin was discontinued and she will be maintained on aspirin 81 mg p.o. twice daily at orthopedic surgery's recommendation at the time of discharge. She did have some issues with constipation and was maintained on docusate and MiraLAX was added to her regimen which she is to take at home as needed for constipation. She is requiring a walker for ambulation and will continue this until instructed otherwise. She will receive outpatient home health services for ongoing care with regards to nursing and physical therapy and Occupational Therapy at the time of discharge. Prescriptions for her antibiotics were sent to home health care and they were able to arrange services for the evening of 02/12/2024. Other prescriptions for pain and constipation were sent to the local pharmacy for filling prior to discharge. She is to call make an appointment to see Dr. Coats in the outpatient office in the next 7 to 10 days. I have also asked that she follow-up with her primary care physician within the next week. Discharge diagnoses: Left knee septic arthritis-MRSA Acute hypoxia-resolved STIVEN-resolving Hypokalemia-replaced Mild hyponatremia-resolving Microcytic anemia-stable Hypertension Obesity Physical Exam Const alert, oriented x3, no apparent distress, no limitations, healthy appearing and well nourished; Negative for average body habitus Constitutional Narrative: Obese, middle-aged, white female, sitting up in a chair at her bedside, at the bedside, appears comfortable, nontoxic, very pleasant General Appearance: cooperative, comfortable, well kempt and well developed Orientation / Consciousness: awake, oriented to person, oriented to place and oriented to time Exam Limitations: no limitations Nutritional Appearance: obese HEENT normocephalic, head/scalp atraumatic, hearing grossly normal bilaterally and moist oral mucous membranes HEENT Narrative: Mallampati 3, no thrush Eyes PERRL, EOMs intact bilaterally and conjunctivae normal Eyes Narrative: No scleral icterus Neck no lymphadenopathy and supple Neck Narrative: Trachea midline, no thyroid enlargement Resp normal respiratory effort, no retractions, no use of accessory muscles and clear to auscultation bilaterally Auscultation: Negative for crackles, rhonchi or wheezes Cardio regular rate, regular rhythm, S1 normal heart sound, S2 normal heart sound, no murmurs, no rub, no gallops and no clicks GI normal to inspection, nondistended, normoactive bowel sounds, soft to palpation and non-tender Extremity no clubbing, cyanosis or edema Extremity Narrative: Left knee with Benito bandage and dressing in place Skin no rashes or lesions noted, skin turgor normal and no jaundice Neuro oriented x3, CN's II-XII intact bilaterally, moves all extremities and no focal motor deficits Neuro Narrative: Decreased range of motion left knee due to recent surgery and septic joint Speech: speech normal Psych affect normal Psych Narrative: Very pleasant, mood seems much more stable today Weight / BMI Weight Weight: 93.9 kg Body Mass Index (BMI) 32.4 ABG / Lab / Microbiology Data 02/12/24 07:30 02/12/24 07:30 Laboratory: Laboratory Results - last 24 hr 02/11/24 17:25: Urine Color Yellow, Urine Clarity Clear, Urine pH 6.0, Ur Specific [place] 1.010, Urine Protein 30 H, Urine Glucose (UA) Normal, Urine Ketones Negative, Urine Occult Blood Negative, Urine Nitrite Negative, Urine Bilirubin Negative, Urine Urobilinogen 4 H, Ur Leukocyte Esterase Negative, Urine RBC 0 SEEN, Urine WBC 0-5 SEEN, Ur Squamous Epith Cells 0-5 SEEN, Urine Bacteria RARE, Urine Mucus 0 SEEN, Ur Random Sodium 6, Urine Creatinine 74.40 02/12/24 07:30: WBC 7.0, RBC 3.59 L, Hgb 9.2 L, Hct 28.3 L, MCV 78.8 L, MCH 25.6 L, MCHC 32.5, RDW Std Deviation 43.6, RDW Coeff of Kj 15.0 H, Plt Count 341, MPV 9.8, Immature Gran % (Auto) 1.100 H, Neut % (Auto) 80.8 H, Lymph % (Auto) 6.6 L, [place] % (Auto) 10.0, Eos % (Auto) 1.1, Baso % (Auto) 0.4, Absolute Neuts (auto) 5.6, Absolute Lymphs (auto) 0.46 L, Nucleated RBC % 0, Sodium 135 L, Potassium 3.2 L, Chloride 105, Carbon Dioxide 24.0, Anion Gap 6, BUN 24 H, Crea tinine 1.75 H, Estim Creat Clear Calc 41.73, Est GFR (MDRD) Af Amer 39 L, Est GFR (MDRD) Non-Af 32 L, BUN/Creatinine Ratio 13.7, Glucose 127 H, Calcium 8.6, Phosphorus 2.8, Magnesium 2.6, Vancomycin Trough 15.4 H Microbiology: Microbiology 02/09/24 01:06 Fluid - Synovial (joint) Gram Stain - Final 02/09/24 01:06 Fluid - Synovial (joint) Body Fluid Culture - Preliminary Meth. resistant Staph. aureus 02/09/24 01:06 Fluid - Synovial (joint) Anaerobic Culture - Final No anaerobic bacteria isolated. D/C Instructions Discharge Diet: Low fat / Low cholesterol Discharge Activity: Return to Normal Activity, May Take a Tub Bath (Avoid soaking left knee and try not to get it wet) and Use Walker Weight Bearing Status: Weight bearing as tolerated Keep extremity elevated above heart level: Operative Extremity Call your doctor if your incision/area has: Continuous Slow Oozing, Increased Pain/ Swelling, Increased Redness and Foul Smelling Discharge Call your doctor if you observe: Fever of 101 or Higher Meaningful Use Info Meaningful Use Meaningful Use Diagnoses (Choose all that apply): None applicable Ischemic Stroke Statin Dosing Therapy Reference: STATIN DOSE THERAPY REFERENCE: * Patients > 75 years receive moderate or high dose statin therapy. * Patients 75 years or YOUNGER should receive HIGH intensity statin dose unless contraindicated. You will be required to document reason for non-treatment if statin daily dose does not meet guidelines. HIGH DOSE STATIN THERAPY DAILY Atorvastatin > than or = to 40 mg Rosuvastatin > than or = to 20 mg Amlodipine + Atorvastatin > than or = to 2.5/40 mg Ezetimibe + Simvastatin 10/80 mg Simvastatin 80mg Discharge Plan Admission Admit Date/Time: 02/09/24 05:15 Primary Reason for Your Visit: Left knee pain and redness Attending Provider: Rossy Hyatt Primary Care Provider: Cayden Yang Consulting Providers: Ayan Dior; Raj Loera; Massimo Coats; Darleen Fernandez Instructions Additional Instructions / Restrictions: 1. Please call your primary care physician and asked that a basic metabolic profile be ordered and done on 02/14/2024 to recheck your kidney function and electrolytes 2. Avoid NSAIDs including Advil, ibuprofen, naproxen until cleared by your primary care physician after kidney function is rechecked -Okay to NU aspirin 81 mg twice daily 3. Please use MiraLAX at home as needed for bowel movements and continue docusate twice daily 4. Please ambulate with a walker until instructed to do otherwise Discharge Orders/Prescriptions Prescriptions: New vancomycin in dextrose 5 % 1 gram/200 mL Piggyback 1,000 mg IV Q24H 10 Days Qty: 2000 0RF Rx Instructions: 10 day course. Weekly bmp, cbc, vanc trough, and esr. Fax to [phone]. Routine picc care per protocol aspirin 81 mg Tablet,Delayed Release (Dr/Ec) 81 mg PO BIDCM Qty: 0 0RF Rx Instructions: Continue for 30 days and then stop acetaminophen 500 mg Tablet 1,000 mg PO Q8 Qty: 0 0RF docusate sodium 100 mg Capsule 100 mg PO BID Qty: 60 0RF oxycodone 5 mg Tablet 10 mg PO Q6H PRN (Reason: pain) 7 Days Qty: 56 0RF Continued cyanocobalamin (vitamin B-12) 1,000 mcg tablet 1,000 mcg PO DAILY amlodipine 5 mg tablet 5 mg PO QPM Held ibuprofen [IBU] 800 mg tablet 800 mg PO Q8H PRN (Reason: pain) Hold Instructions: Until you have your repeat basic metabolic profile to recheck kidney function Discontinued hydrocodone-acetaminophen [hydrocodone-acetaminophen] 5-325 mg tablet 1 tab PO Q6H PRN PRN (Reason: Pain) 3 Days Qty: 10 0RF Referrals / Follow Up: Cayden Yang MD [Primary Care Provider] - Within 1 Week Raj Loera MD [Med Staff - Active Staff] - Within 1 Week (Call to set up an appointment to be seen in the next week) Massimo Coats MD [Med Staff - Active Staff] - See Referral Note (Call later today or tomorrow to set up an appointment to be seen in 7 to 10 days) Disposition Disposition (needs filled in before D/C Order can be placed): Home Health Service Charges/Coding Visit Charges Inpatient E&M: 81149 Disch Hosp >30min
--- NOTE | 2024-02-12 13:55 | PCM.PN.ID ---
Physical Exam Narrative Feeling better, strength improved Const alert and no apparent distress General Appearance: cooperative Resp normal air movement and clear to auscultation bilaterally Cardio regular rate and regular rhythm GI soft to palpation, non-tender and non-distended Extremity General Extremity: edema Skin Skin Narrative: LLE wrapped ID ID: Route of nutrition/ use of supplements: [] Nutritional Intake: [] IV Site: [] Paulino Catheter: [] Assessment & Plan Assessment/Plan (1) Septic arthritis of knee, left: QUALIFIERS: Septic arthritis organism: staphylococcal Qualified Code(s): M00.062 - Staphylococcal arthritis, left knee PLAN: MRSA septic arthritis. Taken to OR 02/09/[address] Coats for I&D. GFR stable. Picc in place, wrote for 10 days iv vanc, then will need 1-2 weeks po abx after that. D/w Dr. Coats. Will follow, ID followup in 2 weeks (2) STIVEN (acute kidney injury):
[2024-02-12 15:33] VITALS: BP 95/44; PULSE 81; RESP 18; TEMP 36.8; O2SAT 96
--- NOTE | 2024-02-12 16:07 | NURSING ---
All documentation by nursing education specialist, Michelle Holguin, reviewed by vocational nursing instructor, Jane DAVALOSN, RN.
--- NOTE | 2024-02-12 16:28 | PHA.DC_ITS ---
Pharmacy [place] Med Reconciliation Pharmacy Service has performed discharge medication reconciliation for this patient. Unable to student success counselor, medication reviewed. The patient's discharge medication list was reviewed for discrepancies and discrepancies were resolved.
--- NOTE | 2024-02-12 16:28 | PHA.DC.MR.R ---
Pharmacy [place] Med Reconciliation Pharmacy Service has performed discharge medication reconciliation for this patient. Unable to commercial counsel, medication reviewed. The patient's discharge medication list was reviewed for discrepancies and discrepancies were resolved.
== END 2024-02-12 16:37 | disposition home health service (06) | DRG 486 ==
LOC: ED 02-09 04:56 → MS3 02-09 05:51
PROVIDERS: Family Medicine; Internal Medicine Infectious Disease; Orthopaedic Surgery; Admitting Provider Family Medicine; Emergency Provider Emergency Medicine; PCP Family Medicine; Visit Provider Internal Medicine
PROC: 0SBD4ZZ Excision of Left Knee Joint, Percutaneous Endoscopic Approach (ICD-10-PCS; CPT 29870; principal; 2024-02-09 08:45)
DX: M00.062 Staphylococcal arthritis, left knee (principal); E87.1 Hypo-osmolality and hyponatremia; N17.9 Acute kidney failure, unspecified; D63.8 Anemia in other chronic diseases classified elsewhere; I10 Essential (primary) hypertension; D50.9 Iron deficiency anemia, unspecified; M17.12 Unilateral primary osteoarthritis, left knee; E87.6 Hypokalemia; M65.869 Other synovitis and tenosynovitis, unspecified lower leg; G47.33 Obstructive sleep apnea (adult) (pediatric); K59.00 Constipation, unspecified; E87.70 Fluid overload, unspecified; E66.9 Obesity, unspecified; Z79.1 Long term (current) use of non-steroidal anti-inflammatories (NSAID); Z68.32 Body mass index [BMI] 32.0-32.9, adult; B95.62 Methicillin resistant Staphylococcus aureus infection as the cause of diseases classified elsewhere
CPT/HCPCS: 36415; 36569; 71045; 76770; 80048; 80202; 81001; 82570; 82728; 83540; 83550; 83735; 84100; 84300; 85025; 85652; 86140; 87040; 87070; 87075; 87077; 87186; 87205; 89050; 89051; 89060; 93005; 94668; 97116; 97162; 97166; 97530; 99252; 99283; J7030; J7040; J7050; A4216; G0463; J1940; J2405

== ENCOUNTER 2024-02-17 12:44 | Outpatient (RCR) | payer OTHER, SELFPAY ==
[2024-02-17 14:19] LABS: Erythrocyte Sedimentation Rate 64 mm/hr (0-30)
[2024-02-17 14:21] LABS: Hematocrit 28.4 % (37-47); Hemoglobin 8.8 g/dL (12.0-15.0); Mean Corpuscular Hgb 25.4 pg (27.0-32.0); Mean Corpuscular Volume 82.1 fL (81-99); Mean Platelet Vol. 9.8 fl (6.2-12.0); Platelet Count 649 K/mm3 (150-450); RBC Distribution Width CV 15.9 % (11.6-14.6); RBC Distribution Width SD 47.4 fl (35.1-43.9); Red Blood Count 3.46 M/mm3 (4.2-5.4); White Blood Count 12.3 K/mm3 (4.4-11.0)
[2024-02-17 14:26] LABS: Anion Gap 6 (5-15); BUN 14 mg/dL (7-18); BUN/Creat Ratio 10.1 RATIO (10-20); Calcium,Total 8.4 mg/dL (8.5-10.1); Chloride 105 mmol/L (98-107); Creatinine, Serum 1.38 mg/dL (0.55-1.02); EST Glomerular Filtration Rate 42 mL/min (>60); Est Glom Filt Rate - Afr Amer 51 mL/min (>60); Glucose 89 mg/dL (74-106); Potassium 3.2 mmol/L (3.5-5.1); Sodium Level 139 mmol/L (136-145)
[2024-02-17 14:27] LABS: Vancomycin, Trough Level 9.3 ug/mL (5.0-15.0)
== END 2024-02-18 22:22 | disposition home or self-care (01) ==
LOC: HHLAB 12:44
PROVIDERS: PCP Family Medicine; Referring Provider Internal Medicine Infectious Disease; Visit Provider Internal Medicine Infectious Disease
DX: M00.9 Pyogenic arthritis, unspecified (principal)
CPT/HCPCS: 80048; 80202; 85027; 85652

== ENCOUNTER → 2024-02-19 | Outpatient (CLI) | payer OTHER, SELFPAY ==
[2024-02-19 17:43] LABS: Pathologist Comment May follow
[2024-02-19 19:12] LABS: RBC /Synovial Fluid 0.344 10^6/uL (0); Synovial Fld Mononuclear WBC # 3.264 10^3/ul; Synovial Fld Polynuclear WBC # 43.034 10^3/uL
[2024-02-19 20:14] LABS: AUTO B FLUID DILUENT BKGD CT WBC <0.1 RBC <0.01 (W<.1,R<.01); CRYSTALS, BODY FLUID NO CRYSTALS SEEN; Lymph 2 %; Monocyte /Synovial Fluid 2 %; Neutrophil 96 % (0-25)
[2024-02-19 20:15] LABS: Source- Body Fluid SYNOVIAL
[2024-02-19 20:16] LABS: Appearance /Synovial Fluid Turbid (CLEAR); Color / Synovial Fluid Red (Pale Yellow); Source / Synovial Fluid LEFT KNEE
[2024-02-19 20:18] LABS: Body Fluid QC Type(s) BF1Q,BF2Q
[2024-02-20 13:23] LABS: Pathologist Review Reviewed
== END | disposition home or self-care (01) ==
LOC: LABSPEC 16:54
PROVIDERS: PCP Family Medicine; Referring Provider Orthopaedic Surgery; Visit Provider Orthopaedic Surgery
DX: B99.9 Unspecified infectious disease (principal)
CPT/HCPCS: 87070; 87075; 87205; 89050; 89051; 89060

== ENCOUNTER → 2024-03-04 | Outpatient (CLI) | payer OTHER, SELFPAY ==
[2024-03-04 12:51] LABS: Erythrocyte Sedimentation Rate 31 mm/hr (0-30)
== END | disposition home or self-care (01) ==
LOC: LAB 11:32
PROVIDERS: PCP Family Medicine; Referring Provider Orthopaedic Surgery; Visit Provider Orthopaedic Surgery
DX: M17.32 Unilateral post-traumatic osteoarthritis, left knee (principal); M25.462 Effusion, left knee
CPT/HCPCS: 36415; 85652; 86140